=== PATIENT | female | born 1990 | race African-American/Black ===

== ENCOUNTER 2016-07-22 00:03 | Emergency (ER) | payer SELFPAY ==
[~2016-07-22] VITALS: Ht 160 cm; Wt 59.9 kg
[~2016-07-22 00:03] MED LIST: ACET325T9 PO; CIPR500T PO; CYCL10TA2 PO; HYDR-2672 PO; HYDR-971 PO; METR500T PO; METR500T4 PO; SERT50TA PO
[2016-07-22 00:45] LABS: NEG OBC UR NEG; POS OBC UR POS
[2016-07-22] MEDS ORDERED: KETOROLAC TROMETHAMINE 30 MG/ML SYRINGE. IV ONE (00:45)
[2016-07-22 00:47] LABS: BILIRUBIN,URINE NEGATIVE (NEG); GLUCOSE,URINE NEGATIVE (NEG); NITRITE,URINE NEGATIVE (NEG); PH,URINE 5.5; PROTEIN,URINE NEGATIVE (NEG-TRACE); UROBILINOGEN,URINE 0.2 mg/dL (0.2 mg/dL)
[2016-07-22 00:55] LABS: BASO # 0.1 x10^3/uL (0.0-0.2); BASO % 1 % (0-3); EOS % 2 % (0-3); HEMATOCRIT 39.5 % (36.0-47.0); HEMOGLOBIN 13.6 g/dL (12.0-15.5); LYMPH # 3.4 x10^3/uL (1.0-4.8); LYMPH % 34 % (24-48); MEAN CORPUSCULAR HEMOGLOBIN 32 pg (25-35); MEAN CORPUSCULAR HGB CONC 34 g/dL (31-37); MEAN CORPUSCULAR VOLUME 91 fL (79-100); MONO % 6 % (0-9); NEUT % 57 % (31-73); PLATELET COUNT 250 x10^3/uL (140-400); RED BLOOD COUNT 4.33 x10^6/uL (3.50-5.40); RED CELL DISTRIBUTION WIDTH 12.2 % (11.5-14.5)
[2016-07-22 00:58] LABS: BACTERIA,URINE 0 /HPF (0-FEW); RBC,URINE 0 /HPF (0-2); SQUAMOUS EPITHELIAL CELL,UR MANY /LPF; WBC,URINE OCC /HPF (0-4)
[2016-07-22 01:05] LABS: CALCIUM 8.8 mg/dL (8.5-10.1); CREATININE 0.8 mg/dL (0.6-1.0); GFR 105.8; POTASSIUM 3.5 mmol/L (3.5-5.1)
--- NOTE | 2016-07-22 01:47 | PHYS DOC ---
Past Medical History Past Medical History: Depression Additional Past Medical Histor: chronic back and hip pain Past Surgical History: , Other Additional Past Surgical Histo: R)ovarian cyst removal, HERNIA REPAIR Alcohol Use: Occasionally Drug Use: Marijuana Adult General Chief Complaint Chief Complaint: ABDOMINAL PAIN HPI HPI Patient is a 25 year old female who presents with boyfriend for eval of LLQ abd pain that is crampy and fluctuating in intensity today, constant pain. She has recent straining with BM. She denies rectal pain or bloody stools. She denies n/v, f/c, dysuria, hematuria, back pain, vaginal bleeding or discharge. States she has h/o ovarian cyst pain, but this is different. Review of Systems Review of Systems Constitutional: Denies fever or chills [] Eyes: Denies change in visual acuity, redness, or eye pain [] HENT: Denies nasal congestion or sore throat [] Respiratory: Denies cough or shortness of breath [] Cardiovascular: No additional information not addressed in HPI [] GI: Denies nausea, vomiting, bloody stools or diarrhea [] : Denies dysuria or hematuria [] Musculoskeletal: Denies back pain or joint pain [] Integument: Denies rash or skin lesions [] Neurologic: Denies headache, focal weakness or sensory changes [] Endocrine: Denies polyuria or polydipsia [] Current Medications Current Medications Current Medications Medications (Trade) Dose Ordered Sig/Jordi Start Time Stop Time Status Last Admin Dose Admin Ketorolac Tromethamine (Toradol) 15 mg 1X ONCE 07/22/16 00:45 07/22/16 00:46 DC 07/22/16 01:08 15 MG Allergies Allergies Allergies Coded Allergies Type Severity Reaction Last Updated Verified Iodinated Contrast Media - IV Dye Allergy Intermediate burn & itch 07/20/15 Yes Physical Exam Physical Exam Constitutional: Well developed, well nourished, no acute distress, non-toxic appearance. [] HENT: Normocephalic, atraumatic, bilateral external ears normal, oropharynx moist, nose normal. [] Eyes: PERRLA, EOMI. [] Neck: Normal range of motion, supple. [] Cardiovascular:Heart rate regular rhythm [] Lungs & Thorax: Bilateral breath sounds clear to auscultation [] Abdomen: Bowel sounds normal, soft, has mild LLQ tenderness with no pelvic tenderness, no guarding or rebound. [] Skin: Warm, dry, no erythema, no rash. [] Back: No tenderness, no CVA tenderness. [] Extremities: ROM intact, no edema. [] Neurologic: Alert and oriented X 3, normal motor function, normal sensory function, no focal deficits noted. [] Psychologic: Affect normal, judgement normal, mood normal. [] Current Patient Data Vital Signs Vital Signs Date Time Temp Pulse Resp B/P Pulse Ox O2 Delivery O2 Flow Rate FiO2 07/22/16 02:22 89 20 102/56 98 Room Air 07/22/16 00:37 97.6 97.6 Lab Values Laboratory Tests Test 07/22/16 00:35 07/22/16 00:45 Urine Collection Type Unknown Urine Color Yellow Urine Clarity Clear Urine pH 5.5 Urine Specific [place] >=1.030 Urine Protein Negativemg/dL (NEG-TRACE) Urine Glucose (UA) Negativemg/dL (NEG) Urine Ketones (Stick) Negativemg/dL (NEG) Urine Blood Negative (NEG) Urine Nitrite Negative (NEG) Urine Bilirubin Negative (NEG) Urine Urobilinogen Dipstick 0.2mg/dL (0.2 mg/dL) Urine Leukocyte Esterase Negative (NEG) Urine RBC 0/HPF (0-2) Urine WBC Occ/HPF (0-4) Urine Squamous Epithelial Cells Many/LPF Urine Bacteria 0/HPF (0-FEW) Urine Mucus Marked/LPF Urine Test Negative (NEG) White Blood Count 10.0x10^3/uL (4.0-11.0) Red Blood Count 4.33x10^6/uL (3.50-5.40) Hemoglobin 13.6g/dL (12.0-15.5) Hematocrit 39.5% (36.0-47.0) Mean Corpuscular Volume 91fL (79-100) Mean Corpuscular Hemoglobin 32pg (25-35) Mean Corpuscular Hemoglobin Concent 34g/dL (31-37) Red Cell Distribution Width 12.2% (11.5-14.5) Platelet Count 250x10^3/uL (140-400) Neutrophils (%) (Auto) 57% (31-73) Lymphocytes (%) (Auto) 34% (24-48) Monocytes (%) (Auto) 6% (0-9) Eosinophils (%) (Auto) 2% (0-3) Basophils (%) (Auto) 1% (0-3) Neutrophils # (Auto) 5.7x10^3uL (1.8-7.7) Lymphocytes # (Auto) 3.4x10^3/uL (1.0-4.8) Monocytes # (Auto) 0.6x10^3/uL (0.0-1.1) Eosinophils # (Auto) 0.2x10^3/uL (0.0-0.7) Basophils # (Auto) 0.1x10^3/uL (0.0-0.2) Sodium Level 141mmol/L (136-145) Potassium Level 3.5mmol/L (3.5-5.1) Chloride Level 106mmol/L (98-107) Carbon Dioxide Level 29mmol/L (21-32) Anion Gap 6 (6-14) Blood Urea Nitrogen 9mg/dL (7-20) Creatinine 0.8mg/dL (0.6-1.0) Estimated GFR (Cockcroft-Gault) 105.8 Glucose Level 103mg/dL (70-99) H Calcium Level 8.8mg/dL (8.5-10.1) Laboratory Tests 07/22/16 00:45 Laboratory Tests 07/22/16 00:45 Radiology/Procedures Radiology/Procedures Acute abdominal series as interpreted by me with no acute cardiopulmonary disease process and nonobstructive bowel gas pattern Ultrasound pelvis IMPRESSION 1. 4.3 centimeter cyst identified in the right ovary. Followup examination is recommended document stability. 2. Linear echogenicity identified in the endometrium likely intrauterine contraceptive device. Electronically signed by: Abilio Siegel (Jul 22, 2016 02:10:45 Course & Med Decision Making Course & Med Decision Making Pertinent Labs and Imaging studies reviewed. (See chart for details) Workup is unremarkable. She is feeling better after medications. Discussed symptoms could be related to constipation and discussed laxatives/stool softeners. Return precautions given. She understood and agrees with plan. Dragon Disclaimer Dragon Disclaimer This electronic medical record was generated, in whole or in part, using a voice recognition dictation system. Departure Departure Impression: Primary Impression: Abdominal pain Disposition: HOME, SELF-CARE Condition: STABLE Referrals: NO PCP (PCP) Patient Instructions: Abdominal Pain, [id number] Additional Instructions: Take Tylenol or ibuprofen as needed for pain. Follow-up with your primary care doctor within one week. Return for any concerns. Problem Qualifiers Primary Impression: Abdominal pain Abdominal location: left lower quadrant Qualified Code: R10.32 - Left lower quadrant pain Jimenez CEJA MD Jul 22, 2016 01:47
--- NOTE | 2016-07-22 02:13 | RAD ---
Examination: Ultrasound pelvis History: History of left lower quadrant pain for 4 hours. FINDINGS The uterus measures 9.0 x 5.7 x 3.3 centimeters. The right ovary measures 5.9 x 4.5 x 3.2 centimeters. The left ovary measures 3.5 x 3.1 x 1.2 centimeters. Blood flow identified in the right and left ovaries. The endometrium measures 1.6 millimeters in transverse dimension. There is linear echogenicity identified in the endometrium likely intrauterine contraceptive device. There is a cystic structure identified in the right ovary measuring 4.3 x 3.6 x 2.7 centimeters likely a cyst. IMPRESSION 1. 4.3 centimeter cyst identified in the right ovary. Followup examination is recommended document stability. 2. Linear echogenicity identified in the endometrium likely intrauterine contraceptive device. Electronically signed by: Abilio Siegel (Jul 22, 2016 02:10:45)
[2016-07-22 02:22] VITALS: BP 102/56
--- NOTE | 2016-07-22 07:53 | RAD ---
EXAM: Abdomen acute complete. HISTORY: Pain. COMPARISON: 06/06/2009. FINDINGS: A frontal view of the chest and frontal upright and supine views of the abdomen are obtained. There is no infiltrate, effusion or pneumothorax. The heart is normal in size. There is gas and stool within the colon. There is no evidence of bowel obstruction. There is no intracranial free air. There is an intrauterine contraceptive device overlying the pelvis. IMPRESSION: 1. No acute pulmonary finding. 2. Nonobstructive bowel gas pattern.
== END 2016-07-22 02:29 | disposition home or self-care (01) ==
LOC: ER 00:03
DX: R10.32 Left lower quadrant pain (principal); Z91.041 Radiographic dye allergy status; F12.10 Cannabis abuse, uncomplicated
CPT/HCPCS: 36415; 74022; 76830; 76856; 80048; 81001; 81025; 85027; 96374; 99285; J1885

== ENCOUNTER 2016-08-29 19:47 | Emergency (ER) | payer SELFPAY ==
[~2016-08-29] VITALS: Ht 165.1 cm; Wt 72.6 kg
[2016-08-29 20:10] VITALS: BP 106/54
[2016-08-29 20:43] LABS: BILIRUBIN,URINE SMALL (NEG); GLUCOSE,URINE NEGATIVE (NEG); NITRITE,URINE NEGATIVE (NEG); PH,URINE 6.5; PROTEIN,URINE 30 mg/dL (NEG-TRACE)
--- NOTE | 2016-08-29 20:48 | PHYS DOC ---
Past Medical History Past Medical History: Depression Additional Past Medical Histor: chronic back and hip pain Past Surgical History: , Other Additional Past Surgical Histo: R)ovarian cyst removal, HERNIA REPAIR Alcohol Use: Occasionally Drug Use: Marijuana Adult General Chief Complaint Chief Complaint: VAGINAL BLEEDING HPI HPI Patient is a 26 year old female presents emergency room today with complaint of vaginal bleeding for the past 4 days. Patient states she pulled her own Mirena out 4 days ago. She states that it been in place for 3 years and she did have complications with chronic pelvic pain since that period of time. She states that she has not been seen by a buffing wheel former machine as she does not have the money to pay to be seen by buffing wheel former machine. She denies any history of genitourinary disease. She denies any history of gynecologic problems or surgeries. She denies any history of bleeding disorders. Review of Systems Review of Systems Constitutional: Denies fever or chills [] Eyes: Denies change in visual acuity, redness, or eye pain [] HENT: Denies nasal congestion or sore throat [] Respiratory: Denies cough or shortness of breath [] Cardiovascular: No additional information not addressed in HPI [] GI: Denies abdominal pain, nausea, vomiting, bloody stools or diarrhea [] : Denies dysuria or hematuria [] Musculoskeletal: Denies back pain or joint pain [] Integument: Denies rash or skin lesions [] Neurologic: Denies headache, focal weakness or sensory changes [] Endocrine: Denies polyuria or polydipsia [] Current Medications Current Medications Current Medications Medications (Trade) Dose Ordered Sig/Jordi Start Time Stop Time Status Last Admin Dose Admin Ketorolac Tromethamine (Toradol Im) 60 mg 1X ONCE 08/29/16 22:00 08/29/16 22:00 DC 08/29/16 21:54 60 MG Allergies Allergies Allergies Coded Allergies Type Severity Reaction Last Updated Verified Iodinated Contrast Media - Oral and Allergy Intermediate burn & itch 07/20/15 Yes Physical Exam Physical Exam Constitutional: Well developed, well nourished, no acute distress, non-toxic appearance. [] HENT: Normocephalic, atraumatic, bilateral external ears normal, oropharynx moist, no oral exudates, nose normal. [] Eyes: PERRLA, EOMI, conjunctiva normal, no discharge. [] Neck: Normal range of motion, no tenderness, supple, no stridor. [] Cardiovascular:Heart rate regular rhythm, no murmur [] Lungs & Thorax: Bilateral breath sounds clear to auscultation [] Abdomen: Abdomen is soft and nondistended. There are normoactive bowel sounds in all 4 quadrants. There is no palpable defects the abdominal wall or pulsatile masses. Patient has no complaints upon palpation. Pelvic exam was performed with DONTRELL Recio in the room. There was moderate amount of vaginal bleeding. There are no blood clots or tissue in the vaginal vault. Cervix was normal in appearance. External os is closed. There is no evidence of lacerations or abrasions to the cervix. There is no cervical motion tenderness. There is no palpable abnormalities to the adnexa or complaints of pain upon bimanual exam. Skin: Warm, dry, no erythema, no rash. [] Back: No tenderness, no CVA tenderness. [] Extremities: No tenderness, no cyanosis, no clubbing, ROM intact, no edema. [] Neurologic: Alert and oriented X 3, normal motor function, normal sensory function, no focal deficits noted. [] Psychologic: Affect normal, judgement normal, mood normal. [] Current Patient Data Vital Signs Vital Signs Date Time Temp Pulse Resp B/P Pulse Ox O2 Delivery O2 Flow Rate FiO2 08/29/16 20:10 97.9 72 18 106/54 100 Room Air 97.9 Lab Values Laboratory Tests Test 08/29/16 20:23 Urine Collection Type Unknown Urine Color Red Urine Clarity Turbid Urine pH 6.5 Urine Specific [place] 1.020 Urine Protein 30mg/dL (NEG-TRACE) Urine Glucose (UA) Negativemg/dL (NEG) Urine Ketones (Stick) Tracemg/dL (NEG) Urine Blood Large (NEG) Urine Nitrite Negative (NEG) Urine Bilirubin Small (NEG) Urine Urobilinogen Dipstick 1.0mg/dL (0.2 mg/dL) Urine Leukocyte Esterase Small (NEG) Urine RBC Tntc/HPF (0-2) Urine WBC 1-4/HPF (0-4) Urine Squamous Epithelial Cells Few/LPF Urine Bacteria 0/HPF (0-FEW) Urine Mucus Slight/LPF Urine Test Negative (NEG) EKG EKG [] Radiology/Procedures Radiology/Procedures [address] [place] [address] IMAGING REPORT Signed PATIENT: MANJIT PENN ACCOUNT: [id number] : 1990 LOCATION: ER AGE: 26 SEX: F EXAM STATUS: REG ER ORD. PHYSICIAN: YOSEF VEGA REASON: vaginal bleeding for 4 days post self extraction of IUD PROCEDURE: PELVIS W/TV PROCEDURE Pelvic ultrasound HISTORY 26-year-old female pulled out her own IUD 4 days ago now with heavy bleeding and clots. Patient had IUD for 3 years, got tired of having hip pain. TECHNIQUE Transabdominal and transvaginal sonographic imaging of the pelvis is performed. COMPARISON July 22, 2016. FINDINGS Transabdominal imaging demonstrates poor visualization of the uterus and ovaries. Transvaginal imaging demonstrates no focal cervical abnormality. The uterus measures 8.6 x 4.8 x 4.1 cm, anteflexed. The endometrial stripe measures 3 millimeters in thickness. The right ovary measures 3.4 x 2.8 x 2.4 cm, with internal blood flow documented and normal appearing follicles. The left ovary measures 3.4 x 2.8 x 2.4 cm, with internal blood flow documented. Within the left ovary is an oval, anechoic, simple appearing 3.2 cm cyst, with increased through transmission and no internal vascularity. It appears smaller in size when compared to the previous exam, on which it measured 4.3 cm. No free fluid is seen within the provided images. IMPRESSION 1. Normal endometrial thickness of 3 mm. 2. Decreased size of a simple appearing left ovarian cyst. Electronically signed by: Linda Duron (Aug 29, 2016 21:39:16) DICTATED and SIGNED BY: LINDA DURON MD DATE: 08/29/16 2139 CC: YOSEF VEGA; NO PCP ~ Course & Med Decision Making Course & Med Decision Making Pertinent Labs and Imaging studies reviewed. (See chart for details) [] Dragon Disclaimer Dragon Disclaimer This electronic medical record was generated, in whole or in part, using a voice recognition dictation system. Departure Departure Impression: Primary Impression: Vaginal bleeding Disposition: 01 HOME, SELF-CARE Condition: GOOD Referrals: NO PCP (PCP) Patient Instructions: Uterine Bleeding, Dysfunctional, [id number] Additional Instructions: 1. Pelvic ultrasound today is normal. There were no evidence of tears or lacerations to your cervix. 2. test is negative. Urine shows no evidence of infection. 3. Take the medication as prescribed. 4. You need to follow-up with a buffing wheel former machine. Please call [phone] tomorrow to establish a follow-up appointment. Scripts Naproxen Sodium (Anaprox Ds)550 Mg [id number] Mg PO twice a day #20 Prov:YOSEF VEGA 08/29/16 YOSEF VEGA Aug 29, 2016 20:48
[2016-08-29 20:53] LABS: BACTERIA,URINE 0 /HPF (0-FEW); RBC,URINE TNTC /HPF (0-2); SQUAMOUS EPITHELIAL CELL,UR FEW /LPF
[2016-08-29 21:17] LABS: NEG OBC UR NEG; POS OBC UR POS
--- NOTE | 2016-08-29 21:40 | RAD ---
PROCEDURE Pelvic ultrasound HISTORY 26-year-old female pulled out her own IUD 4 days ago now with heavy bleeding and clots. Patient had IUD for 3 years, got tired of having hip pain. TECHNIQUE Transabdominal and transvaginal sonographic imaging of the pelvis is performed. COMPARISON July 22, 2016. FINDINGS Transabdominal imaging demonstrates poor visualization of the uterus and ovaries. Transvaginal imaging demonstrates no focal cervical abnormality. The uterus measures 8.6 x 4.8 x 4.1 cm, anteflexed. The endometrial stripe measures 3 millimeters in thickness. The right ovary measures 3.4 x 2.8 x 2.4 cm, with internal blood flow documented and normal appearing follicles. The left ovary measures 3.4 x 2.8 x 2.4 cm, with internal blood flow documented. Within the left ovary is an oval, anechoic, simple appearing 3.2 cm cyst, with increased through transmission and no internal vascularity. It appears smaller in size when compared to the previous exam, on which it measured 4.3 cm. No free fluid is seen within the provided images. IMPRESSION 1. Normal endometrial thickness of 3 mm. 2. Decreased size of a simple appearing left ovarian cyst. Electronically signed by: Leeann Duron (Aug 29, 2016 21:39:16)
[2016-08-29] MEDS ORDERED: NAPR550T PO (21:47)
[2016-08-29] MEDS ORDERED: KETOROLAC TROMETHAMINE 60 MG/2 ML SYRINGE. IM ONE (22:00)
== END 2016-08-29 21:56 | disposition home or self-care (01) ==
LOC: ER 19:47
DX: N93.9 Abnormal uterine and vaginal bleeding, unspecified (principal); G89.29 Other chronic pain; R10.2 Pelvic and perineal pain; F32.9 Major depressive disorder, single episode, unspecified; F12.10 Cannabis abuse, uncomplicated; Z91.041 Radiographic dye allergy status
CPT/HCPCS: 76830; 76856; 81001; 81025; 87086; 96372; 99285; J1885

== ENCOUNTER 2016-09-27 14:47 | Emergency (ER) | payer SELFPAY ==
[~2016-09-27] VITALS: Ht 162.6 cm; Wt 61.7 kg
[~2016-09-27 14:47] MED LIST changes: +NAPR550T PO
[2016-09-27 14:51] VITALS: BP 100/59
[2016-09-27] MEDS ORDERED: PRED20TA PO (15:28)
--- NOTE | 2016-09-27 15:29 | PHYS DOC ---
Past Medical History Past Medical History: Depression Additional Past Medical Histor: chronic back and hip pain Past Surgical History: , Other Additional Past Surgical Histo: R)ovarian cyst removal, HERNIA REPAIR Additional Information: nonsmoker Alcohol Use: None Drug Use: None Adult General Chief Complaint Chief Complaint: ITCHING HPI HPI Patient is a 26 year old female who presents with itchy rash starting last night. The rash started on her face and has spread to her neck, chest, and right hand. She denies any changes in household products or new medications. She denies fever, shortness of breath, or angioedema. She does not have a PCP. Review of Systems Review of Systems Constitutional: Denies fever or chills. [] Eyes: Denies change in visual acuity, redness, or eye pain. [] HENT: Denies ear pain, nasal congestion or sore throat. Denies angioedema. Respiratory: Denies cough or shortness of breath. [] Musculoskeletal: Denies back pain or joint pain. [] Integument: Reports pruritic rash. Allergies Allergies Allergies Coded Allergies Type Severity Reaction Last Updated Verified Iodinated Contrast Media - Oral and Allergy Intermediate burn & itch 07/20/15 Yes Physical Exam Physical Exam Constitutional: Well developed, well nourished, no acute distress, non-toxic appearance. [] HENT: Normocephalic, atraumatic, oropharynx moist. [] Eyes: PERRLA, EOMI, conjunctiva normal, no discharge. [] Neck: Normal range of motion, no tenderness, supple, no stridor. [] Cardiovascular: Heart rate regular rhythm, no murmur. [] Lungs & Thorax: Bilateral breath sounds clear to auscultation without wheezes, rales, or rhonchi. [] Skin: Warm, dry, no erythema. There is a fine, erythematous, maculopapular patchy rash on the face, left side of the neck, between the breasts, and on the dorsum of the right hand over the 1st metacarpal. Extremities: No tenderness, ROM intact, no edema. Distal pulses equal bilaterally. [] Neurologic: Alert and oriented X 3, normal motor function, normal sensory function, no focal deficits noted. [] Psychologic: Affect normal, judgement normal, mood normal. [] Current Patient Data Vital Signs Vital Signs Date Time Temp Pulse Resp B/P Pulse Ox O2 Delivery O2 Flow Rate FiO2 09/27/16 14:51 98.1 80 16 100 Room Air 98.1 EKG EKG [] Radiology/Procedures Radiology/Procedures [] Course & Med Decision Making Course & Med Decision Making Pertinent Labs and Imaging studies reviewed. (See chart for details) [] Dragon Disclaimer Dragon Disclaimer This electronic medical record was generated, in whole or in part, using a voice recognition dictation system. Departure Departure Impression: Primary Impression: Contact dermatitis Disposition: HOME, SELF-CARE Condition: STABLE Referrals: BRADLEY RENAE MD Patient Instructions: Contact Dermatitis, [id number] Additional Instructions: Your rash appears to be due to an allergy to an unknown substance. You were given a shot of steroids in the emergency department to help decrease the itching and clear the rash. Please complete all of the prescribed steroid pills, starting tomorrow. Please follow-up with the envelope press operator listed below if your rash continues or returns. Return to the emergency department if you have any new or concerning symptoms. Scripts Prednisone 20 Mg [id number] Mg PO DAILY 5 Days Prov:JIM PATEL 09/27/16 Problem Qualifiers Primary Impression: Contact dermatitis Contact dermatitis type: unspecified Contact dermatitis trigger: unspecified trigger Qualified Code: L25.9 - Unspecified contact dermatitis, unspecified cause JIM PATEL Sep 27, 2016 15:29
[2016-09-27] MEDS ORDERED: DEXAMETHASONE SOD PHOS 20 MG/5 ML VIAL. IM ONE (16:00)
== END 2016-09-27 15:53 | disposition home or self-care (01) ==
LOC: ER 14:47
DX: L25.9 Unspecified contact dermatitis, unspecified cause (principal); F32.9 Major depressive disorder, single episode, unspecified; Z91.041 Radiographic dye allergy status
CPT/HCPCS: 96372; 99283; J1100

== ENCOUNTER 2016-11-12 13:54 | Emergency (ER) | payer OTHER ==
[~2016-11-12] VITALS: Ht 162.6 cm; Wt 58.5 kg
[~2016-11-12 13:54] MED LIST changes: +PRED20TA PO
--- NOTE | 2016-11-12 14:32 | PHYS DOC ---
Past Medical History Past Medical History: Depression Additional Past Medical Histor: chronic back and hip pain Past Surgical History: , Other Additional Past Surgical Histo: R)ovarian cyst removal, HERNIA REPAIR Alcohol Use: None Drug Use: None Adult General Chief Complaint Chief Complaint: VAGINAL BLEEDING [facility] Patient is a 26 year old female presenting to the emergency department for evaluation of vaginal bleeding in early . She thinks that she is approximately 6-7 weeks' based off of her last menstrual period. She is with a prior due to decelerations based on what she is describing to me. She says that she had a large gush of blood and now the bleeding has slowed down and there is just a small amount of bleeding on the tissue. Patient does not know her blood type and she denies any abdominal pain now where as before she had some discomfort. Review of Systems Review of Systems Constitutional: Denies fever or chills [] Respiratory: Denies cough or shortness of breath [] Cardiovascular: No additional information not addressed in [facility] [] GI: Denies abdominal pain, nausea, vomiting, bloody stools or diarrhea [] : Denies dysuria or hematuria [] Musculoskeletal: Denies back pain or joint pain [] Allergies Allergies Allergies Coded Allergies Type Severity Reaction Last Updated Verified Iodinated Contrast Media - Oral and Allergy Intermediate burn & itch 07/20/15 Yes Physical Exam Physical Exam Constitutional: Well developed, well nourished, no acute distress, non-toxic appearance. [] Cardiovascular:Heart rate regular rhythm, no murmur [] Lungs & Thorax: Bilateral breath sounds clear to auscultation [] Abdomen: Bowel sounds normal, soft, no tenderness, no masses, no pulsatile masses. DRILLING AND PRODUCTION SUPERINTENDENT exam revealed some bleeding from her cervical os and it appears closed feels closed as well. No Cervical motion or adnexal tenderness on exam.. Skin: Warm, dry, no erythema, no rash. [] Back: No tenderness, no CVA tenderness. [] Current Patient Data Vital Signs Vital Signs Date Time Temp Pulse Resp B/P (MAP) Pulse Ox O2 Delivery O2 Flow Rate FiO2 11/12/16 14:10 98.4 86 18 113/67 (82) 98 Room Air 98.4 EKG EKG [] Radiology/Procedures Radiology/Procedures [] Course & Med Decision Making Course & Med Decision Making Patient will get labs including Quant hCG type and screen and then a OB ultrasound and then reevaluate. Workup pending at this time so we will transfer care to Dr. York and have him disposition the patient appropriately. Raina Disclaimer Dragon Disclaimer This electronic medical record was generated, in whole or in part, using a voice recognition dictation system. Departure Departure Impression: Primary Impression: Threatened Referrals: NO PCP (PCP) SAHARA WALTERS DO November 12, 2016 14:32
[2016-11-12 14:46] LABS: BASO % 0 % (0-3); EOS % 1 % (0-3); HEMATOCRIT 40.3 % (36.0-47.0); HEMOGLOBIN 13.8 g/dL (12.0-15.5); LYMPH # 2.2 x10^3/uL (1.0-4.8); LYMPH % 22 % (24-48); MEAN CORPUSCULAR HEMOGLOBIN 32 pg (25-35); MEAN CORPUSCULAR HGB CONC 34 g/dL (31-37); MEAN CORPUSCULAR VOLUME 92 fL (79-100); MONO % 7 % (0-9); NEUT % 70 % (31-73); PLATELET COUNT 244 x10^3/uL (140-400); RED BLOOD COUNT 4.37 x10^6/uL (3.50-5.40); RED CELL DISTRIBUTION WIDTH 12.5 % (11.5-14.5)
[2016-11-12 14:47] LABS: BILIRUBIN,URINE NEGATIVE (NEG); GLUCOSE,URINE NEGATIVE (NEG); NITRITE,URINE NEGATIVE (NEG); PROTEIN,URINE NEGATIVE (NEG-TRACE); UROBILINOGEN,URINE 0.2 mg/dL (0.2 mg/dL)
[2016-11-12 14:57] LABS: CALCIUM 9.2 mg/dL (8.5-10.1); CREATININE 0.6 mg/dL (0.6-1.0); GFR 146.2; POTASSIUM 3.3 mmol/L (3.5-5.1)
[2016-11-12 15:03] LABS: ALBUMIN 3.9 g/dL (3.4-5.0); TOTAL BILIRUBIN 0.4 mg/dL (0.2-1.0); TOTAL PROTEIN 7.9 g/dL (6.4-8.2)
[2016-11-12 15:04] LABS: WBC,URINE OCC /HPF (0-4)
[2016-11-12 15:05] LABS: BACTERIA,URINE FEW /HPF (0-FEW); SQUAMOUS EPITHELIAL CELL,UR FEW /LPF
[2016-11-12 15:06] LABS: NEG OBC UR NEG; POS OBC UR POS
--- NOTE | 2016-11-12 16:08 | RAD ---
Indication: Vaginal bleeding, . Technique: First trimester OB ultrasound was performed. Transabdominal imaging was performed with transvaginal imaging also performed to better evaluate the AP. Findings: Single live intrauterine with heart tones of 157 bpm are noted. Gestational sac, pole, and yolk sac are visualized. [place]-rump length measurement on average is 0.36 cm corresponding to a gestational age of 6 weeks 0 days and CARLI by crown-rump length of July 08, 2017, concordant with CARLI by LMP. Probable 15 x 14 x 6 mm subchorionic hemorrhage is noted. Corpus luteum cyst is noted in the left ovary. Right ovary is normal in appearance on grayscale imaging. Color flow and low-resistance waveform is documented for both ovaries. Small amount of simple free fluid is noted. Impression: 1. Single live intrauterine with heart tones of 157 bpm and estimated gestational age by crown-rump length of 6 weeks 0 days. 2. Small subchorionic hemorrhage, short term follow-up can be considered.
[2016-11-12 16:15] VITALS: BP 113/67
[2016-11-12] MEDS ORDERED: ONDA4TAB10 PO (16:26)
== END 2016-11-12 16:31 | disposition home or self-care (01) ==
LOC: ER 14:57
DX: O20.0 Threatened abortion (principal); O99.341 Other mental disorders complicating pregnancy, first trimester; F32.9 Major depressive disorder, single episode, unspecified; Z91.041 Radiographic dye allergy status; Z3A.01 Less than 8 weeks gestation of pregnancy
CPT/HCPCS: 36415; 76801; 76817; 80053; 81001; 81025; 84702; 85027; 86850; 86900; 86901; 87086; 99285-25

== ENCOUNTER 2017-01-09 10:38 | Emergency (ER) | payer OTHER ==
[~2017-01-09] VITALS: Ht 160 cm; Wt 58.5 kg
[~2017-01-09 10:38] MED LIST changes: -HYDR-2672 PO; +HYDR-2766 PO; -METR500T4 PO; +METR500T8 PO; +ONDA4TAB10 PO
[2017-01-09] MEDS ORDERED: IV NORMAL SALINE 1000ML BAG 1,000 ML IV SCH (11:32)
[2017-01-09] MEDS ORDERED: ONDANSETRON PF 4 MG/2 ML VIAL. IV ONE ×2 (11:45→14:00)
[2017-01-09 12:00] LABS: BASO % 0 % (0-3); EOS % 1 % (0-3); HEMATOCRIT 40.1 % (36.0-47.0); HEMOGLOBIN 13.7 g/dL (12.0-15.5); LYMPH # 1.5 x10^3/uL (1.0-4.8); LYMPH % 13 % (24-48); MEAN CORPUSCULAR HEMOGLOBIN 31 pg (25-35); MEAN CORPUSCULAR HGB CONC 34 g/dL (31-37); MEAN CORPUSCULAR VOLUME 91 fL (79-100); MONO % 5 % (0-9); NEUT % 82 % (31-73); PLATELET COUNT 211 x10^3/uL (140-400); RED CELL DISTRIBUTION WIDTH 12.5 % (11.5-14.5); WHITE BLOOD COUNT 11.9 x10^3/uL (4.0-11.0)
[2017-01-09 12:05] LABS: CALCIUM 8.9 mg/dL (8.5-10.1); CREATININE 0.5 mg/dL (0.6-1.0); GFR 180.5; POTASSIUM 3.6 mmol/L (3.5-5.1)
[2017-01-09] MEDS ORDERED: diphenhydrAMINE 50 MG/ML VIAL IVP ONE (12:15)
[2017-01-09] MEDS ORDERED: ACETAMINOPHEN 500 MG TABLET PO ONE (12:15)
--- NOTE | 2017-01-09 12:37 | PHYS DOC ---
Past Medical History Past Medical History: Depression Additional Past Medical Histor: chronic back and hip pain Past Surgical History: , Other Additional Past Surgical Histo: R)ovarian cyst removal, HERNIA REPAIR Alcohol Use: None Drug Use: None Adult General Chief Complaint Chief Complaint: VOMITING IN [facility] HPI Patient is a 26 year old female who is about 14 weeks by LMP she is a 001 who comes in complaining of nausea and vomiting and crampy abdominal pain for last 4 days. Patient was seen on off by her FINANCIAL RISK MANAGER recently had an ultrasound done 2 days ago with a normal developing IUP. Patient has had intermittent nausea with vomiting and crampy abdominal pain after she vomits. She denies any vaginal bleeding, discharge or diarrhea. She denies any trauma, fevers, chills or other URI symptoms. She also denies any UTI symptoms of urgency frequency or dysuria. Patient admits the pain only occurs when she vomits. Patient is also a mild lower neck pain that radiates along the skull grading a tension headache. It is been waxing and waning for 4 days. It is not worse of life sudden onset or causing any neurologic deficits. She denies any change in vision, photophobia, change in memory or other issues. At this time she is primarily looking for symptomatically for her nausea and vomiting. Her Ob believes that some of her symptoms be related to sinuses and encouraged use [id number] Claritin. Review of Systems Review of Systems Constitutional: Denies fever or chills [] Eyes: Denies change in visual acuity, redness, or eye pain [] HENT: Denies nasal congestion or sore throat [] Respiratory: Denies cough or shortness of breath [] Cardiovascular: No additional information not addressed in HPI [] GI: This patient does quit of abdominal pain crampy in nature without radiation with nausea and vomiting is nonbilious nonbloody. She denies any diarrhea or constipation.. : Denies dysuria or hematuria [] Musculoskeletal: Denies back pain or joint pain [] Integument: Denies rash or skin lesions [] Neurologic: Denies headache, focal weakness or sensory changes [] Endocrine: Denies polyuria or polydipsia [] Current Medications Current Medications Current Medications Medications (Trade) Dose Ordered Sig/Jordi Start Time Stop Time Status Last Admin Dose Admin Acetaminophen (Tylenol) 1,000 mg 1X ONCE 01/09/17 12:15 01/09/17 12:21 DC Diphenhydramine HCl (Benadryl) 25 mg 1X ONCE 01/09/17 12:15 01/09/17 12:21 DC Ondansetron HCl (Zofran) 4 mg 1X ONCE 01/09/17 11:45 01/09/17 11:46 DC 01/09/17 12:08 4 MG Sodium Chloride 1,000 ml @ 1,000 mls/hr Q1H 01/09/17 11:32 01/09/17 12:31 DC 01/09/17 12:08 1,000 MLS/HR Allergies Allergies Allergies Coded Allergies Type Severity Reaction Last Updated Verified Iodinated Contrast Media - Oral and Allergy Intermediate burn & itch 07/20/15 Yes Physical Exam Physical Exam This patient's vital signs been reviewed by me NORMAL LIMITS. Constitutional: Well developed, well nourished, no acute distress, non-toxic appearance. [] HENT: Normocephalic, atraumatic, bilateral external ears normal, oropharynx moist, no oral exudates, nose normal. [] Eyes: PERRLA, EOMI, conjunctiva normal, no discharge. [] Neck: Normal range of motion, no tenderness, supple, no stridor. [] Cardiovascular:Heart rate regular rhythm, no murmur [] Lungs & Thorax: Bilateral breath sounds clear to auscultation [] Abdomen: Bowel sounds normal, soft, no tenderness, no masses, no pulsatile masses. Patient does demonstrated a slight gravid uterus that is palpable just over the pelvis ring. Skin: Warm, dry, no erythema, no rash. [] Back: No tenderness, no CVA tenderness. [] Extremities: No tenderness, no cyanosis, no clubbing, ROM intact, no edema. [] Neurologic: Alert and oriented X 3, normal motor function, normal sensory function, no focal deficits noted. [] Psychologic: Affect normal, judgement normal, mood normal. [] Current Patient Data Vital Signs Vital Signs Date Time Temp Pulse Resp B/P (MAP) Pulse Ox O2 Delivery O2 Flow Rate FiO2 01/09/17 11:20 98.7 87 16 126/72 (90) 99 Room Air 98.7 Lab Values Laboratory Tests Test 01/09/17 11:50 White Blood Count 11.9 x10^3/uL (4.0-11.0) H Red Blood Count 4.40 x10^6/uL (3.50-5.40) Hemoglobin 13.7 g/dL (12.0-15.5) Hematocrit 40.1 % (36.0-47.0) Mean Corpuscular Volume 91 fL (79-100) Mean Corpuscular Hemoglobin 31 pg (25-35) Mean Corpuscular Hemoglobin Concent 34 g/dL (31-37) Red Cell Distribution Width 12.5 % (11.5-14.5) Platelet Count 211 x10^3/uL (140-400) Neutrophils (%) (Auto) 82 % (31-73) H Lymphocytes (%) (Auto) 13 % (24-48) L Monocytes (%) (Auto) 5 % (0-9) Eosinophils (%) (Auto) 1 % (0-3) Basophils (%) (Auto) 0 % (0-3) Neutrophils # (Auto) 9.8 x10^3uL (1.8-7.7) H Lymphocytes # (Auto) 1.5 x10^3/uL (1.0-4.8) Monocytes # (Auto) 0.5 x10^3/uL (0.0-1.1) Eosinophils # (Auto) 0.1 x10^3/uL (0.0-0.7) Basophils # (Auto) 0.0 x10^3/uL (0.0-0.2) Sodium Level 136 mmol/L (136-145) Potassium Level 3.6 mmol/L (3.5-5.1) Chloride Level 100 mmol/L (98-107) Carbon Dioxide Level 24 mmol/L (21-32) Anion Gap 12 (6-14) Blood Urea Nitrogen 5 mg/dL (7-20) L Creatinine 0.5 mg/dL (0.6-1.0) L Estimated GFR (Cockcroft-Gault) 180.5 Glucose Level 85 mg/dL (70-99) Calcium Level 8.9 mg/dL (8.5-10.1) Laboratory Tests 01/09/17 11:50 Laboratory Tests 01/09/17 11:50 EKG EKG [] Radiology/Procedures Radiology/Procedures [] [facility] [address] [place] [address] IMAGING REPORT Signed PATIENT: MANJIT PNEN ACCOUNT: [id number] : 1990 LOCATION: ER AGE: 26 SEX: F EXAM STATUS: REG ER ORD. PHYSICIAN: KENNETH BELLO MD REASON: lower ab pain PROCEDURE: OB < 14 WKS INDICATION:lower ab pain COMPARISON: 11/12/2016 FINDINGS: Focused ultrasound images are obtained through the uterus and adnexa. The cervix is seen with the placenta appearing to cover the internal cervical os. There is a hypoechoic region seen along placenta near cervical region. There is a heartbeat of 158. Intrauterine with estimated gestational age 14 weeks and 5 days with estimated due date of 07/05/2017. The maternal ovaries are not seen. IMPRESSION: Intrauterine is identified with estimated gestational age of 14 weeks and 6 days with a positive heartbeat. The placenta appears to be covering the internal cervical os at this time which can be seen with placenta previa. Continued follow-up will be needed to assess for change in location of the placenta relation to the cervix. In addition there is a small hypoechoic region seen along the edge of the placenta near the cervix. Could be seen with causes such as a small venous suárez although small hematoma in the region also in the differential. Recommend routine anomaly screening at 18-22 weeks. DICTATED and SIGNED BY: MITCHELL ZAMBRANO MD DATE: 01/09/17 8211 CC: KENNETH BELLO MD; NO PCP ~ Course & Med Decision Making Course & Med Decision Making Pertinent Labs and Imaging studies reviewed. (See chart for details) Patient presented with nausea and vomiting and I believe is related to her . I'm waiting on a ultrasound to ensure that the IVP is still present and viable. Still waiting for urinalysis. Patient tells me that their symptoms given during CC are improved. Time is now 1236 patient is still awaiting ultrasound. Is now 1:25 PM Patient tells me that their symptoms given during CC are improved. We reviewed labs and radiology reports with patient about getting a urine sample to ensure that she is not having an infected urine. Patient declines wanted to give a urine sample rather go home. She understands the risk of not diagnosing a UTI and early may progress for labor. She is okay accepting that risk. Patient which she feels better to tension headache is also improved with Tylenol orally. We talked about medication C for and she'll be discharged home on Tylenol Zofran for her tension headache and her nausea and vomiting. Her abdomen is soft on discharge evaluation. Impression: Threatened miscarriage, nausea vomiting, tension headache. Disposition: Discharged home with FINANCIAL RISK MANAGER PCP follow-up in 24 hrs. given precautions to return for increasing abdominal pain, vaginal bleeding or discharge or if she had any question or concerns [] Dragon Disclaimer Dragon Disclaimer This electronic medical record was generated, in whole or in part, using a voice recognition dictation system. Departure Departure Impression: Primary Impression: Abdominal pain Disposition: 01 HOME, SELF-CARE Condition: IMPROVED Referrals: NO PCP (PCP) Patient Instructions: Nausea and Vomiting, Threatened Miscarriage Additional Instructions: Please return for any new or increasing pain, vaginal bleeding or discharge, fever greater than 102.2 with any UTI symptoms or feel any questions or concerns. Scripts Ondansetron (ZOFRAN ODT) 4 Mg Tab.rapdis 4 MG PO BID Y for NAUSEA/VOMITING for 5 Days, #10 TAB Prov: KENNETH BELLO MD 01/09/17 Acetaminophen (TYLENOL) 325 Mg Tablet 1-2 TAB PO QID, #60 TAB 2 Refills Prov: KENNETH BELLO MD 01/09/17 KENNETH BELLO MD Jan 09, 2017 12:37
--- NOTE | 2017-01-09 13:02 | RAD ---
INDICATION:lower ab pain COMPARISON: 11/12/2016 FINDINGS: Focused ultrasound images are obtained through the uterus and adnexa. The cervix is seen with the placenta appearing to cover the internal cervical os. There is a hypoechoic region seen along placenta near cervical region. There is a heartbeat of 158. Intrauterine with estimated gestational age 14 weeks and 5 days with estimated due date of 07/05/2017. The maternal ovaries are not seen. IMPRESSION: Intrauterine is identified with estimated gestational age of 14 weeks and 6 days with a positive heartbeat. The placenta appears to be covering the internal cervical os at this time which can be seen with placenta previa. Continued follow-up will be needed to assess for change in location of the placenta relation to the cervix. In addition there is a small hypoechoic region seen along the edge of the placenta near the cervix. Could be seen with causes such as a small venous suárez although small hematoma in the region also in the differential. Recommend routine anomaly screening at 18-22 weeks.
[2017-01-09] MEDS ORDERED: ONDA4TAB10 PO (13:31)
[2017-01-09] MEDS ORDERED: ACET325T9 PO (13:31)
[2017-01-09 13:45] LABS: BILIRUBIN,URINE NEGATIVE (NEG); GLUCOSE,URINE NEGATIVE (NEG); NITRITE,URINE NEGATIVE (NEG); PH,URINE 6.5; PROTEIN,URINE NEGATIVE (NEG-TRACE)
[2017-01-09 14:00] LABS: BACTERIA,URINE MANY /HPF (0-FEW); RBC,URINE 0 /HPF (0-2); SQUAMOUS EPITHELIAL CELL,UR MOD /LPF
[2017-01-09 14:20] VITALS: BP 113/63
== END 2017-01-09 14:28 | disposition home or self-care (01) ==
LOC: ER 10:38
DX: O26.892 Other specified pregnancy related conditions, second trimester (principal); R10.9 Unspecified abdominal pain; M54.2 Cervicalgia; O99.342 Other mental disorders complicating pregnancy, second trimester; F32.9 Major depressive disorder, single episode, unspecified; O99.352 Diseases of the nervous system complicating pregnancy, second trimester; G44.209 Tension-type headache, unspecified, not intractable; Z3A.14 14 weeks gestation of pregnancy; Z91.041 Radiographic dye allergy status
CPT/HCPCS: 36415; 76801; 80048; 81001; 85027; 87086; 96361; 96374; 96375; 99285; J1200; J2405; J7030

== ENCOUNTER 2017-01-23 12:48 | Emergency (ER) | payer OTHER ==
[2017-01-23] MEDS ORDERED: IV NORMAL SALINE 1000ML BAG 1,000 ML IV ONE (13:15)
[2017-01-23 13:24] LABS: BASO # 0.1 x10^3/uL (0.0-0.2); BASO % 1 % (0-3); EOS % 2 % (0-3); HEMATOCRIT 41.8 % (36.0-47.0); HEMOGLOBIN 14.2 g/dL (12.0-15.5); LYMPH % 18 % (24-48); MEAN CORPUSCULAR HEMOGLOBIN 31 pg (25-35); MEAN CORPUSCULAR HGB CONC 34 g/dL (31-37); MEAN CORPUSCULAR VOLUME 92 fL (79-100); MONO % 5 % (0-9); NEUT % 76 % (31-73); PLATELET COUNT 205 x10^3/uL (140-400); RED BLOOD COUNT 4.55 x10^6/uL (3.50-5.40); WHITE BLOOD COUNT 11.5 x10^3/uL (4.0-11.0)
[2017-01-23 13:28] LABS: BILIRUBIN,URINE NEGATIVE (NEG); GLUCOSE,URINE NEGATIVE (NEG); NITRITE,URINE NEGATIVE (NEG); PH,URINE 6.5; PROTEIN,URINE NEGATIVE (NEG-TRACE)
[2017-01-23 13:37] LABS: CREATININE 0.5 mg/dL (0.6-1.0); GFR 180.5; POTASSIUM 3.7 mmol/L (3.5-5.1)
[2017-01-23 13:43] LABS: ALBUMIN 3.5 g/dL (3.4-5.0); TOTAL PROTEIN 7.6 g/dL (6.4-8.2)
[2017-01-23 13:44] LABS: ALBUMIN/GLOBULIN RATIO 0.9 (1.0-1.7); MAGNESIUM 1.7 mg/dL (1.8-2.4); TOTAL BILIRUBIN 0.5 mg/dL (0.2-1.0)
[2017-01-23 13:50] LABS: BACTERIA,URINE MANY /HPF (0-FEW); RBC,URINE 0 /HPF (0-2); SQUAMOUS EPITHELIAL CELL,UR MANY /LPF
[2017-01-23] MEDS ORDERED: NITR100C62 PO (14:13)
--- NOTE | 2017-01-23 14:14 | PHYS DOC ---
Past Medical History Past Medical History: Depression Additional Past Medical Histor: chronic back and hip pain Past Surgical History: , Other Additional Past Surgical Histo: R)ovarian cyst removal, HERNIA REPAIR Alcohol Use: None Drug Use: None Adult General Chief Complaint Chief Complaint: DIZZY/[facility]ED [facility] HPI Patient is a 26 year old female presenting to the emergency department for evaluation of a near syncopal episode while she was out walking to the park with her child. He is approximately 4 months and follows at over the [facility]. Patient says that she was walking for some time and she felt lightheaded and it should he was going to pass out however she did not so she called the ambulance. She says that she is feeling better now but she was hypotensive with EMS and her blood sugar was in the 60s. He says that she has not ate or drank anything today but she denies any abdominal pain fevers chills nausea vomiting dysuria hematuria vaginal bleeding or vaginal discharge. Currently she is in no obvious distress with normal vital signs. Review of Systems Review of Systems Constitutional: Denies fever or chills [] Eyes: Denies change in visual acuity, redness, or eye pain [] HENT: Denies nasal congestion or sore throat [] Respiratory: Denies cough or shortness of breath [] Cardiovascular: No additional information not addressed in HPI [] GI: Denies abdominal pain, nausea, vomiting, bloody stools or diarrhea [] : Denies dysuria or hematuria [] Musculoskeletal: Denies back pain or joint pain [] Integument: Denies rash or skin lesions [] Neurologic: Denies headache, focal weakness or sensory changes [] Current Medications Current Medications Current Medications Medications (Trade) Dose Ordered Sig/Jordi Start Time Stop Time Status Last Admin Dose Admin Sodium Chloride 1,000 ml @ 1,000 mls/hr 1X ONCE 01/23/17 13:15 01/23/17 14:14 DC 01/23/17 13:20 1,000 MLS/HR Allergies Allergies Allergies Coded Allergies Type Severity Reaction Last Updated Verified Iodinated Contrast- Oral and IV Dye Allergy Intermediate burn & itch 07/20/15 Yes Physical Exam Physical Exam Constitutional: Well developed, well nourished, no acute distress, non-toxic appearance. [] HENT: Normocephalic, atraumatic, bilateral external ears normal, oropharynx moist, no oral exudates, nose normal. [] Eyes: PERRLA, EOMI, conjunctiva normal, no discharge. [] Neck: Normal range of motion, no tenderness, supple, no stridor. [] Cardiovascular:Heart rate regular rhythm, no murmur [] Lungs & Thorax: Bilateral breath sounds clear to auscultation [] Abdomen: Bowel sounds normal, soft, no tenderness, no masses, no pulsatile masses. [] Skin: Warm, dry, no erythema, no rash. [] Back: No tenderness, no CVA tenderness. [] Extremities: No tenderness, no cyanosis, no clubbing, ROM intact, no edema. [] Neurologic: Alert and oriented X 3, normal motor function, normal sensory function, no focal deficits noted. [] Psychologic: Affect normal, judgement normal, mood normal. [] Current Patient Data Vital Signs Vital Signs Date Time Temp Pulse Resp B/P (MAP) Pulse Ox O2 Delivery O2 Flow Rate FiO2 01/23/17 12:53 98.1 75 18 107/53 (71) 100 Room Air 98.1 Lab Values Laboratory Tests Test 01/23/17 13:00 01/23/17 13:15 Glucose (Fingerstick) 73 mg/dL (70-99) White Blood Count 11.5 x10^3/uL (4.0-11.0) H Red Blood Count 4.55 x10^6/uL (3.50-5.40) Hemoglobin 14.2 g/dL (12.0-15.5) Hematocrit 41.8 % (36.0-47.0) Mean Corpuscular Volume 92 fL (79-100) Mean Corpuscular Hemoglobin 31 pg (25-35) Mean Corpuscular Hemoglobin Concent 34 g/dL (31-37) Red Cell Distribution Width 13.0 % (11.5-14.5) Platelet Count 205 x10^3/uL (140-400) Neutrophils (%) (Auto) 76 % (31-73) H Lymphocytes (%) (Auto) 18 % (24-48) L Monocytes (%) (Auto) 5 % (0-9) Eosinophils (%) (Auto) 2 % (0-3) Basophils (%) (Auto) 1 % (0-3) Neutrophils # (Auto) 8.7 x10^3uL (1.8-7.7) H Lymphocytes # (Auto) 2.0 x10^3/uL (1.0-4.8) Monocytes # (Auto) 0.5 x10^3/uL (0.0-1.1) Eosinophils # (Auto) 0.2 x10^3/uL (0.0-0.7) Basophils # (Auto) 0.1 x10^3/uL (0.0-0.2) Urine Collection Type Unknown Urine Color Yellow Urine Clarity Clear Urine pH 6.5 Urine Specific [place] 1.020 Urine Protein Negative mg/dL (NEG-TRACE) Urine Glucose (UA) Negative mg/dL (NEG) Urine Ketones (Stick) >=80 mg/dL (NEG) Urine Blood Negative (NEG) Urine Nitrite Negative (NEG) Urine Bilirubin Negative (NEG) Urine Urobilinogen Dipstick 1.0 mg/dL (0.2 mg/dL) Urine Leukocyte Esterase Small (NEG) Urine RBC 0 /HPF (0-2) Urine WBC 1-4 /HPF (0-4) Urine Squamous Epithelial Cells Many /LPF Urine Bacteria Many /HPF (0-FEW) Urine Mucus Marked /LPF Sodium Level 136 mmol/L (136-145) Potassium Level 3.7 mmol/L (3.5-5.1) Chloride Level 102 mmol/L (98-107) Carbon Dioxide Level 23 mmol/L (21-32) Anion Gap 11 (6-14) Blood Urea Nitrogen 5 mg/dL (7-20) L Creatinine 0.5 mg/dL (0.6-1.0) L Estimated GFR (Cockcroft-Gault) 180.5 BUN/Creatinine Ratio 10 (6-20) Glucose Level 77 mg/dL (70-99) Calcium Level 9.0 mg/dL (8.5-10.1) Magnesium Level 1.7 mg/dL (1.8-2.4) L Total Bilirubin 0.5 mg/dL (0.2-1.0) Aspartate Amino Transferase (AST) 16 U/L (15-37) Alanine Aminotransferase (ALT) 15 U/L (14-59) Alkaline Phosphatase 71 U/L (46-116) Total Protein 7.6 g/dL (6.4-8.2) Albumin 3.5 g/dL (3.4-5.0) Albumin/Globulin Ratio 0.9 (1.0-1.7) L Laboratory Tests 01/23/17 13:15 Laboratory Tests 01/23/17 13:15 EKG EKG [] Radiology/Procedures Radiology/Procedures Bedside ultrasound showed intrauterine with heart tones in the 140s Course & Med Decision Making Course & Med Decision Making Patient was given food to eat and fluids to drink and I told her that she needs to drink a lot of water and Gatorade today and eat a normal diet as she has ketones in her urine. . In her urine as well which is likely contaminant given all of the epithelial cells. Given she is we'll go ahead and start on Macrobid. Patient has repeat benign physical exam and vital signs so she'll be discharged in stable condition. Aware and agreeable with plan and verbalized understanding of the need for short-term follow-up in the strict ER return precautions discussed including worsening pain dizziness or other general concerns. Dragon Disclaimer Dragon Disclaimer This electronic medical record was generated, in whole or in part, using a voice recognition dictation system. Departure Departure Impression: Primary Impression: Near syncope Additional Impressions: UTI (urinary tract infection) Hypomagnesemia Ketonuria Disposition: 01 HOME, SELF-CARE Condition: GOOD Referrals: NO PCP (PCP) Patient Instructions: Near-Syncope Scripts Nitrofurantoin Monohyd/M-Cryst (MACROBID 100 MG CAPSULE) 100 Mg Capsule 1 CAP PO BID, #14 CAP Prov: SAHARA WALTERS DO 01/23/17 Problem Qualifiers SAHARA WALTERS DO Jan 23, 2017 14:13
[2017-01-23 14:20] VITALS: BP 108/59
--- NOTE | 2017-01-24 13:16 | EKG ---
[facility] [address] [place] [address] Test Date: 2017-01-23 Test Time: 13:18:14 Pat Name: MANJIT PENN Department: Room: Gender: F [employer]: : 1990 Requested By: SAHARA WALTERS Order Number: [id number] Reading MD: Lito Arechiga Measurements Intervals [place] Rate: 77 P: 0 PA: 150 QRS: 43 QRSD: 68 T: 16 QT: 368 QTc: 418 Interpretive Statements SINUS RHYTHM NORMAL ECG RI6.01 Unconfirmed report Compared to ECG 05/20/2012 18:32:31 No significant changes Electronically Signed On 01-25-2017 15:37:43 CDT by Lito Arechiga
== END 2017-01-23 14:30 | disposition home or self-care (01) ==
LOC: ER 12:48
DX: O26.892 Other specified pregnancy related conditions, second trimester (principal); R55 Syncope and collapse; O23.42 Unspecified infection of urinary tract in pregnancy, second trimester; E83.42 Hypomagnesemia; R82.4 Acetonuria; G89.29 Other chronic pain; Z91.041 Radiographic dye allergy status; Z3A.16 16 weeks gestation of pregnancy
CPT/HCPCS: 36415; 80053; 81001; 82962; 83735; 85027; 87086; 93005; 96360; 99285; J7030

== ENCOUNTER 2017-02-20 17:36 | Emergency (ER) | payer OTHER ==
[~2017-02-20] VITALS: Ht 160 cm; Wt 62.6 kg
[~2017-02-20 17:36] MED LIST changes: +NITR100C62 PO
[2017-02-20 18:48] LABS: BILIRUBIN,URINE NEGATIVE (NEG); GLUCOSE,URINE NEGATIVE (NEG); NITRITE,URINE NEGATIVE (NEG); PH,URINE 7.5; PROTEIN,URINE NEGATIVE (NEG-TRACE); UROBILINOGEN,URINE 0.2 mg/dL (0.2 mg/dL)
[2017-02-20 18:57] LABS: BACTERIA,URINE MODERATE /HPF (0-FEW); RBC,URINE 0 /HPF (0-2); SQUAMOUS EPITHELIAL CELL,UR MOD /LPF
[2017-02-20 19:57] LABS: BASO # 0.1 x10^3/uL (0.0-0.2); BASO % 1 % (0-3); EOS % 1 % (0-3); HEMATOCRIT 37.6 % (36.0-47.0); HEMOGLOBIN 12.8 g/dL (12.0-15.5); LYMPH # 1.9 x10^3/uL (1.0-4.8); LYMPH % 17 % (24-48); MEAN CORPUSCULAR HEMOGLOBIN 32 pg (25-35); MEAN CORPUSCULAR HGB CONC 34 g/dL (31-37); MEAN CORPUSCULAR VOLUME 93 fL (79-100); MONO % 6 % (0-9); NEUT % 75 % (31-73); PLATELET COUNT 216 x10^3/uL (140-400); RED BLOOD COUNT 4.05 x10^6/uL (3.50-5.40); RED CELL DISTRIBUTION WIDTH 12.7 % (11.5-14.5); WHITE BLOOD COUNT 11.1 x10^3/uL (4.0-11.0)
[2017-02-20 20:13] LABS: CALCIUM 9.1 mg/dL (8.5-10.1); CREATININE 0.5 mg/dL (0.6-1.0); GFR 180.5; POTASSIUM 3.3 mmol/L (3.5-5.1)
[2017-02-20 20:19] LABS: ALBUMIN 3.1 g/dL (3.4-5.0); ALBUMIN/GLOBULIN RATIO 0.8 (1.0-1.7); TOTAL BILIRUBIN 0.2 mg/dL (0.2-1.0); TOTAL PROTEIN 7.1 g/dL (6.4-8.2)
--- NOTE | 2017-02-20 20:37 | RAD ---
EXAM: Obstetric sonogram. HISTORY: Blunt trauma. TECHNIQUE: Sonographic imaging of a gravid uterus was performed. COMPARISON: 01/09/2017. FINDINGS: There is a single intrauterine fetus in breech presentation with a heart rate of 162 bpm. There is a grade 0 anterior placenta without evidence of placenta previa or abruption. The amniotic fluid index is normal. The biparietal diameter is 4.88 cm, corresponding with 20 weeks and 5 days. The head circumference is 18.49 cm, corresponding with 20 weeks and 6 days. The abdominal circumference is 16.42 cm, corresponding with 21 weeks and 3 days. The femoral length is 3.50 cm, corresponding with 21 weeks and 0 days. The estimated gestational age based on combined ultrasound measurements is 21 weeks and 0 days. The estimated weight is 408 g. The head circumference to abdominal ratio is 1.13. The anatomy is not formally assessed. There is normal body movement. The cervix is normal in length. IMPRESSION: 1. Single intrauterine fetus with a heart rate of 162 bpm and estimated gestational age based on ultrasound measurements of 21 weeks and 0 days. 2. Note is made that the anatomy is not formally assessed. Short-term follow-up with a dedicated anatomy survey is recommended if not previously performed. Electronically signed by: Eli Live MD (02/20/2017 8:33 PM) [facility]
[2017-02-20 20:52] VITALS: BP 129/59
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
== END 2017-02-20 21:23 | disposition home or self-care (01) ==
LOC: ER 17:36
DX: O26.892 Other specified pregnancy related conditions, second trimester (principal); R10.33 Periumbilical pain; O99.342 Other mental disorders complicating pregnancy, second trimester; F32.9 Major depressive disorder, single episode, unspecified; Z3A.20 20 weeks gestation of pregnancy; Z91.041 Radiographic dye allergy status; W22.8XXA Striking against or struck by other objects, initial encounter; Y93.B2 Activity, push-ups, pull-ups, sit-ups; Y99.8 Other external cause status; Y92.481 Parking lot as the place of occurrence of the external cause
CPT/HCPCS: 36415; 76815; 80053; 81001; 85025; 87086; 99285-25

== ENCOUNTER 2017-03-17 07:51 | Observation (INO) | payer OTHER ==
[~2017-03-17 07:51] MED LIST changes: +NAPR-682 PO; -NAPR550T PO
[2017-03-17] MEDS ORDERED: PROAIR HFA8.5 GM INH (10:04)
[2017-03-17] MEDS ORDERED: AZIT250T6 PO (10:04)
== END 2017-03-17 08:25 | disposition home or self-care (01) ==
LOC: 3 SO LND 07:51
PROVIDERS: ADMIT Specialist; ATTEND Specialist
DX: O36.8120 Decreased fetal movements, second trimester, not applicable or unspecified (principal); O26.892 Other specified pregnancy related conditions, second trimester; R05 Cough; R06.02 Shortness of breath; J02.9 Acute pharyngitis, unspecified; Z3A.00 Weeks of gestation of pregnancy not specified
CPT/HCPCS: G0379

== ENCOUNTER 2017-03-17 08:37 | Emergency (ER) | payer OTHER ==
[~2017-03-17] VITALS: Ht 162.6 cm; Wt 64.0 kg
[2017-03-17] MEDS ORDERED: IPRATRPIUM/ALBUTEROL 0.5/2.5MG 3 ML NEBU. NEB ONE (09:30)
[2017-03-17 09:51] LABS: BASO % 0 % (0-3); EOS % 2 % (0-3); HEMATOCRIT 40.4 % (36.0-47.0); HEMOGLOBIN 13.8 g/dL (12.0-15.5); LYMPH # 0.8 x10^3/uL (1.0-4.8); LYMPH % 6 % (24-48); MEAN CORPUSCULAR HEMOGLOBIN 32 pg (25-35); MEAN CORPUSCULAR HGB CONC 34 g/dL (31-37); MEAN CORPUSCULAR VOLUME 93 fL (79-100); MONO % 5 % (0-9); NEUT % 86 % (31-73); PLATELET COUNT 185 x10^3/uL (140-400); RED BLOOD COUNT 4.34 x10^6/uL (3.50-5.40); RED CELL DISTRIBUTION WIDTH 13.5 % (11.5-14.5); WHITE BLOOD COUNT 13.7 x10^3/uL (4.0-11.0)
[2017-03-17 09:55] LABS: CALCIUM 8.9 mg/dL (8.5-10.1); CREATININE 0.5 mg/dL (0.6-1.0); GFR 180.5; POTASSIUM 3.3 mmol/L (3.5-5.1)
--- NOTE | 2017-03-17 09:57 | RAD ---
PA and lateral chest radiographs 03/17/2017. Clinical History: Cough for 2 days.. PA and lateral digital radiographs of the chest were obtained. Comparison study is dated 07/22/2016. No previous studies are available for comparison. The cardiac and mediastinal silhouettes are within normal limits in size and configuration. No pulmonary infiltrate is seen. No pleural effusion or pneumothorax is noted. The osseous structures are grossly intact. Impression: No radiographic evidence of active cardiopulmonary disease.
[2017-03-17] MEDS ORDERED: AZIT250T6 PO (10:04)
[2017-03-17] MEDS ORDERED: PROAIR HFA8.5 GM INH (10:04)
--- NOTE | 2017-03-17 10:04 | PHYS DOC ---
Past Medical History Past Medical History: Depression Additional Past Medical Histor: chronic back and hip pain Past Surgical History: , Other Additional Past Surgical Histo: R)ovarian cyst removal, HERNIA REPAIR Alcohol Use: None Drug Use: None Adult General Chief Complaint Chief Complaint: COUGH HPI HPI 26-year-old female presenting to the emergency department with intermittent shortness of breath productive cough and purulent green sputum production over the last 3 days. Patient denies fever at home and is not febrile here. She is currently and was evaluated prior to being seen here at labor and delivery immediately prior to arrival for "decreased movement". Review of systems is negative for abdominal pain nausea vomiting. She denies recent trauma. All other review of systems is negative unless otherwise noted in history of present illness. ED course: 26-year-old female presenting with a productive cough and shortness of breath over the past 2 days. Patient was evaluated in labor and delivery for evaluation prior to my evaluation. Reportedly cleared by labor and delivery. Chest x-ray and blood work obtained. Nebulizer given in the emergency department. Chest x-ray negative for acute infiltrate. Blood work shows nonspecific leukocytosis. Reexamination the patient is feeling better. Ultrasound of the abdomen shows intrauterine viable . Patient was prescribed azithromycin for pneumonia to follow-up with her OB in 2-3 days. They were to return if their symptoms worsened or if they were concerned for any reason. [id number] discharge instructions and return precautions were given. Patient's questions were answered to their satisfaction. Patient is comfortable plan. Review of Systems Review of Systems SEE ABOVE. Current Medications Current Medications Current Medications Medications (Trade) Dose Ordered Sig/[facility] Start Time Stop Time Status Last Admin Dose Admin Albuterol/ Ipratropium (Duoneb) 3 ml 1X ONCE 03/17/17 09:30 03/17/17 09:31 DC 03/17/17 10:23 3 ML Allergies Allergies Allergies Coded Allergies Type Severity Reaction Last Updated Verified Iodinated Contrast- Oral and IV Dye Allergy Intermediate burn & itch 07/20/15 Yes Physical Exam Physical Exam SEE ABOVE Constitutional: Well developed, well nourished, no acute distress, non-toxic appearance. [] HENT: Normocephalic, atraumatic, bilateral external ears normal, oropharynx moist, no oral exudates, nose normal. [] Eyes: PERRLA, EOMI, conjunctiva normal, no discharge. [] Neck: Normal range of motion, no tenderness, supple, no stridor. [] Cardiovascular:Heart rate regular rhythm, no murmur [] Lungs & Thorax: Bilateral breath sounds clear to auscultation. No wheezing rhonchi or crackles. Abdomen: Bowel sounds normal, soft, no tenderness, no masses, no pulsatile masses. [] Skin: Warm, dry, no erythema, no rash. [] Back: No tenderness, no CVA tenderness. [] Extremities: No tenderness, no cyanosis, no clubbing, ROM intact, no edema. [] Neurologic: Alert and oriented X 3, normal motor function, normal sensory function, no focal deficits noted. [] Psychologic: Affect normal, judgement normal, mood normal. [] Current Patient Data Vital Signs Vital Signs Date Time Temp Pulse Resp B/P (MAP) Pulse Ox O2 Delivery O2 Flow Rate FiO2 03/17/17 10:26 Room Air 03/17/17 09:14 98.5 94 18 129/59 (82) 99 98.5 Lab Values Laboratory Tests Test 03/17/17 09:30 White Blood Count 13.7 x10^3/uL (4.0-11.0) H Red Blood Count 4.34 x10^6/uL (3.50-5.40) Hemoglobin 13.8 g/dL (12.0-15.5) Hematocrit 40.4 % (36.0-47.0) Mean Corpuscular Volume 93 fL (79-100) Mean Corpuscular Hemoglobin 32 pg (25-35) Mean Corpuscular Hemoglobin Concent 34 g/dL (31-37) Red Cell Distribution Width 13.5 % (11.5-14.5) Platelet Count 185 x10^3/uL (140-400) Neutrophils (%) (Auto) 86 % (31-73) H Lymphocytes (%) (Auto) 6 % (24-48) L Monocytes (%) (Auto) 5 % (0-9) Eosinophils (%) (Auto) 2 % (0-3) Basophils (%) (Auto) 0 % (0-3) Neutrophils # (Auto) 11.8 x10^3uL (1.8-7.7) H Lymphocytes # (Auto) 0.8 x10^3/uL (1.0-4.8) L Monocytes # (Auto) 0.7 x10^3/uL (0.0-1.1) Eosinophils # (Auto) 0.3 x10^3/uL (0.0-0.7) Basophils # (Auto) 0.0 x10^3/uL (0.0-0.2) Segmented Neutrophils % 76 % (35-66) H Band Neutrophils % 7 % (0-9) Lymphocytes % 8 % (24-48) L Monocytes % 6 % (0-10) Eosinophils % 3 % (0-5) Platelet Estimate Adequate (ADEQUATE) Sodium Level 136 mmol/L (136-145) Potassium Level 3.3 mmol/L (3.5-5.1) L Chloride Level 100 mmol/L (98-107) Carbon Dioxide Level 28 mmol/L (21-32) Anion Gap 8 (6-14) Blood Urea Nitrogen 3 mg/dL (7-20) L Creatinine 0.5 mg/dL (0.6-1.0) L Estimated GFR (Cockcroft-Gault) 180.5 Glucose Level 93 mg/dL (70-99) Calcium Level 8.9 mg/dL (8.5-10.1) Laboratory Tests 03/17/17 09:30 Laboratory Tests 03/17/17 09:30 EKG EKG [] Radiology/Procedures Radiology/Procedures [] Course & Med Decision Making Course & Med Decision Making Pertinent Labs and Imaging studies reviewed. (See chart for details) [] Dragon Disclaimer Dragon Disclaimer This electronic medical record was generated, in whole or in part, using a voice recognition dictation system. Departure Departure Impression: Primary Impression: Cough Additional Impression: Disposition: 01 HOME, SELF-CARE Condition: STABLE Referrals: NO PCP (PCP) MANJU WILLINGHAM MD Patient Instructions: Cough, Adult, [id number] Additional Instructions: Thank you for allowing us to participate in your care today. Followup with your OB in 3 days. Call your Primary Doctor tomorrow and inform them of your visit today. If you do not have a primary care provider you can ask for a list of our primary care providers. Return to the emergency department you have any new or concerning findings. This should be evaluated by the primary care physician and any necessary consulting services for continued management within a few days after discharge. Return to emergency room if you have any new or concerning symptoms including but not limited to fever, chills, nausea, vomiting, intractable pain, any new rashes, chest pain, shortness of air, uncontrolled bleeding, difficulty breathing, and/or vision loss. Scripts Albuterol Sulfate (PROAIR HFA INHALER) 8.5 Gm Hfa.aer.ad 1 PUFF INH PRN Q6HRS Y for SHORTNESS OF BREATH, #1 INHALER 0 Refills Prov: MARCELLA VIEIRA MD 03/17/17 Azithromycin (AZITHROMYCIN TABLET) 250 Mg Tablet 1 PKG PO UD, #6 TAB Prov: MARCELLA VIEIRA MD 03/17/17 Problem Qualifiers MARCELLA VIEIRA MD Mar 17, 2017 10:04
--- NOTE | 2017-03-17 10:17 | RAD ---
Limited OB ultrasound greater than 14 weeks 03/17/2017 Clinical History: Decreased movement.. Technique: A real time ultrasound examination of the gravid uterus was performed. Multiple images were obtained. Findings: Comparison study is dated 02/20/2017. There is a single living IUP. The fetus is in a cephalic position. cardiac and somatic activity is seen. The heart rate is 141 beats permit minute. The placenta is anterior. No focal abnormality of the placenta is seen. The amniotic fluid level is within normal limits. The following measurements were obtained: BPD 6.1 cm 24 weeks 5 days HC 22.5 cm 24 weeks 4 days AC 19.3 cm 24 weeks 0 days FL 4.2 cm 23 weeks 3 days The estimated gestational age by ultrasound is 24 weeks 1 day . plus or minus a standard deviation of 10 days. The estimated date of delivery of by ultrasound on today's study is 07/06/2017 on today's study. Since previous examination has been appropriate interval growth. Detailed evaluation of anatomy was not performed. No obvious abnormality is seen. Impression: Single living IUP with an estimated gestational age by ultrasound on today's study of 24 weeks 1 day plus or minus a standard deviation of 10 days. Since the previous examination there has been appropriate interval growth..
[2017-03-17 10:35] LABS: % EOS 3 % (0-5)
[2017-03-17 10:36] LABS: PLT ESTIMATE ADEQUATE (ADEQUATE)
[2017-03-17 11:13] VITALS: BP 126/69
== END 2017-03-17 11:15 | disposition home or self-care (01) ==
LOC: ER 08:37
DX: O26.892 Other specified pregnancy related conditions, second trimester (principal); R05 Cough; R06.02 Shortness of breath; G89.29 Other chronic pain; Z3A.24 24 weeks gestation of pregnancy; Z91.041 Radiographic dye allergy status
CPT/HCPCS: 36415; 71020; 76805; 80048; 85007; 85025; 94250; 94640; 99285; J7620

== ENCOUNTER 2017-04-19 19:14 | Observation (INO) | payer OTHER ==
[~2017-04-19 19:14] MED LIST changes: +AZIT250T6 PO; +PROAIR HFA8.5 GM INH
[2017-04-19] MEDS ORDERED: IV RINGERS,LACTATED 1000ML 1,000 ML IV SCH (19:25)
[2017-04-19] MEDS ORDERED: ACETAMINOPHEN 325 MG TABLET. PO PRN (19:30)
[2017-04-19] MEDS ORDERED: ONDANSETRON PF 4 MG/2 ML VIAL. IV PRN (19:30)
[2017-04-19 19:43] LABS: BILIRUBIN,URINE NEGATIVE (NEG); GLUCOSE,URINE NEGATIVE (NEG); NITRITE,URINE NEGATIVE (NEG); PH,URINE 6.5; PROTEIN,URINE NEGATIVE (NEG-TRACE); UROBILINOGEN,URINE 0.2 mg/dL (0.2 mg/dL)
[2017-04-19 19:47] LABS: BARBITURATES NEG (NEG); BENZODIAZEPINES NEG (NEG); CANNABINOIDS NEG (NEG); COCAINE NEG (NEG); METHADONE NEG (NEG); OPIATES NEG (NEG); PHENCYCLIDINE NEG (NEG)
[2017-04-19 19:57] LABS: BACTERIA,URINE MANY /HPF (0-FEW); RBC,URINE 0 /HPF (0-2); SQUAMOUS EPITHELIAL CELL,UR MOD /LPF
== END 2017-04-19 21:10 | disposition home or self-care (01) ==
LOC: 3 SO LND 19:14
PROVIDERS: ADMIT Obstetrics & Gynecology; ATTEND Obstetrics & Gynecology
DX: O21.8 Other vomiting complicating pregnancy (principal); K92.0 Hematemesis; O26.893 Other specified pregnancy related conditions, third trimester; R23.3 Spontaneous ecchymoses; Z3A.29 29 weeks gestation of pregnancy
CPT/HCPCS: 80307; 81001; 87086; G0378; G0379; G0479

== ENCOUNTER 2017-06-07 12:38 | Observation (INO) | payer OTHER ==
[2017-06-07] MEDS ORDERED: IV RINGERS,LACTATED 1000ML 1,000 ML IV (12:59)
[2017-06-07 13:17] LABS: BILIRUBIN,URINE NEGATIVE (NEG); GLUCOSE,URINE NEGATIVE (NEG); NITRITE,URINE NEGATIVE (NEG); PROTEIN,URINE NEGATIVE (NEG-TRACE); UROBILINOGEN,URINE 0.2 mg/dL (0.2 mg/dL)
[2017-06-07 13:22] LABS: SQUAMOUS EPITHELIAL CELL,UR MOD /LPF
[2017-06-07 13:23] LABS: BACTERIA,URINE MODERATE /HPF (0-FEW)
[2017-06-07 13:28] LABS: BARBITURATES NEG (NEG); BENZODIAZEPINES NEG (NEG); CANNABINOIDS NEG (NEG); COCAINE NEG (NEG); METHADONE NEG (NEG); OPIATES NEG (NEG); PHENCYCLIDINE NEG (NEG)
[2017-06-07 13:37] LABS: ETHANOL, URINE NEG (NEG)
== END 2017-06-07 18:00 | disposition home or self-care (01) ==
LOC: 3 SO LND 12:38
DX: O26.899 Other specified pregnancy related conditions, unspecified trimester (principal); Z3A.00 Weeks of gestation of pregnancy not specified
CPT/HCPCS: 80307; 81001; 87086; G0378; G0379

== ENCOUNTER 2017-10-17 12:11 | Emergency (ER) | payer OTHER ==
[2017-10-17] MEDS: IBUPROFEN 800 MG TABLET. PO (12:41)
[2017-10-17 12:55] LABS: BILIRUBIN,URINE NEGATIVE (NEG); CLARITY,URINE CLEAR; COLOR,URINE YELLOW; GLUCOSE,URINE NEGATIVE (NEG); NITRITE,URINE NEGATIVE (NEG); PROTEIN,URINE NEGATIVE (NEG-TRACE); UROBILINOGEN,URINE 0.2 mg/dL (0.2 mg/dL)
[2017-10-17 13:03] LABS: BACTERIA,URINE 0 /HPF (0-FEW); RBC,URINE >40 /HPF (0-2); SQUAMOUS EPITHELIAL CELL,UR MANY /LPF; WBC,URINE >40 /HPF (0-4)
== END 2017-10-17 13:25 | disposition home or self-care (01) ==
LOC: ER 12:11
DX: N39.0 Urinary tract infection, site not specified (principal); N94.6 Dysmenorrhea, unspecified; Z90.49 Acquired absence of other specified parts of digestive tract; Z98.890 Other specified postprocedural states
CPT/HCPCS: 81001; 87086; 99284

== ENCOUNTER 2017-11-01 20:50 | Emergency (ER) | payer OTHER ==
[2017-11-01] MEDS: ACETAMINOPHEN 325 MG TABLET. PO (22:04)
== END 2017-11-01 22:24 | disposition home or self-care (01) ==
LOC: ER 20:50
DX: S92.534A Nondisplaced fracture of distal phalanx of right lesser toe(s), initial encounter for closed fracture (principal); G89.29 Other chronic pain; Z91.041 Radiographic dye allergy status; W22.8XXA Striking against or struck by other objects, initial encounter; Y93.89 Activity, other specified; Y99.8 Other external cause status; Y92.89 Other specified places as the place of occurrence of the external cause
CPT/HCPCS: 73630; 99284

== ENCOUNTER 2018-01-15 20:11 | Emergency (ER) | payer OTHER ==
[2018-01-15 20:38] LABS: URINE HCG POC HCG NEGATIVE (Negative)
[2018-01-15 20:49] LABS: BILIRUBIN,URINE NEGATIVE (NEG); CLARITY,URINE CLOUDY; COLOR,URINE YELLOW; GLUCOSE,URINE NEGATIVE (NEG); NITRITE,URINE NEGATIVE (NEG); PROTEIN,URINE NEGATIVE (NEG-TRACE); UROBILINOGEN,URINE 0.2 mg/dL (0.2 mg/dL)
[2018-01-15 21:11] LABS: BACTERIA,URINE FEW /HPF (0-FEW); RBC,URINE OCC /HPF (0-2); SQUAMOUS EPITHELIAL CELL,UR FEW /LPF; WBC,URINE OCC /HPF (0-4)
[2018-01-15] MEDS: metroNIDAZOLE 500 MG TABLET PO (21:55)
== END 2018-01-15 22:00 | disposition home or self-care (01) ==
LOC: ER 20:11
DX: N76.0 Acute vaginitis (principal); B96.89 Other specified bacterial agents as the cause of diseases classified elsewhere; F32.9 Major depressive disorder, single episode, unspecified; G89.29 Other chronic pain; Z91.041 Radiographic dye allergy status
CPT/HCPCS: 81001; 81025; 87491; 87591; 99283; 99284; Q0111

== ENCOUNTER 2018-07-02 15:08 | Emergency (ER) | payer OTHER ==
[~2018-07-02] VITALS: Ht 162.6 cm; Wt 73.5 kg
[~2018-07-02 15:08] MED LIST changes: +ALBU2.5V8 INH; +FLUC150T PO; -HYDR-2766 PO; +HYDR-2769 PO; +HYDR-3164 PO; -HYDR-971 PO; +METR-84 PO; -METR500T8 PO; -PROAIR HFA8.5 GM INH
[2018-07-02 17:15] VITALS: BP 118/73
--- NOTE | 2018-07-02 17:17 | PHYS DOC ---
Past Medical History Past Medical History: Depression Additional Past Medical Histor: chronic back and hip pain Past Surgical History: , Other Additional Past Surgical Histo: R)ovarian cyst removal, HERNIA REPAIR Alcohol Use: Rarely Drug Use: None Adult General Chief Complaint Chief Complaint: ABDOMINAL PAIN HPI HPI 27-year-old female presents to ER for complaints of vaginal discharge and foul odor. Patient reports she is also having foul odor while urinating with concerns she may have UTI. Patient reports intermittent lower abdominal cramping denies any nausea or vomiting. Patient's LMP ended 2 days ago. Patient reports she recently had unprotected sex with her ex boyfriend and developed vaginal discharge following that intercourse. Patient denies any other symptoms. Patient denies fever. Review of Systems Review of Systems Constitutional: Denies fever or chills [] Cardiovascular: No additional information not addressed in HPI [] GI: Denies nausea, vomiting, bloody stools or diarrhea. Reports intermittent lower abd cramping : Reports dysuria and vaginal discharge/foul odor Musculoskeletal: Denies back pain or joint pain [] Integument: Denies rash or skin lesions [] Neurologic: Denies headache, focal weakness or sensory changes [] All other systems were reviewed and found to be within normal limits, except as documented in this note. Allergies Allergies Allergies Coded Allergies Type Severity Reaction Last Updated Verified Iodinated Contrast- Oral and IV Dye Allergy Intermediate burn & itch 07/20/15 Yes Physical Exam Physical Exam Constitutional: Well developed, well nourished, no acute distress, non-toxic appearance. [] HENT: Normocephalic, atraumatic, bilateral external ears normal, oropharynx moist, no oral exudates, nose normal. [] Eyes: PERRLA, EOMI, conjunctiva normal, no discharge. [] Neck: Normal range of motion, no tenderness, supple, no stridor. [] Cardiovascular:Heart rate regular rhythm, no murmur [] Lungs & Thorax: Bilateral breath sounds clear to auscultation [] Abdomen: Bowel sounds normal, soft, no tenderness, no masses, no pulsatile masses. [] Skin: Warm, dry, no erythema, no rash. [] Back: No tenderness, no CVA tenderness. [] Extremities: No tenderness, no cyanosis, no clubbing, ROM intact, no edema. [] Neurologic: Alert and oriented X 3, normal motor function, normal sensory function, no focal deficits noted. [] Psychologic: Affect normal, judgement normal, mood normal. [] Current Patient Data Vital Signs Vital Signs Date Time Temp Pulse Resp B/P (MAP) Pulse Ox O2 Delivery O2 Flow Rate FiO2 07/02/18 17:15 75 18 118/73 (88) 100 Room Air 07/02/18 16:45 98.9 98.9 Lab Values Laboratory Tests Test 07/02/18 16:30 07/02/18 17:35 Urine Collection Type Unknown Urine Color Yellow Urine Clarity Cloudy Urine pH 7.0 Urine Specific [place] 1.025 Urine Protein Negative mg/dL (NEG-TRACE) Urine Glucose (UA) Negative mg/dL (NEG) Urine Ketones (Stick) Negative mg/dL (NEG) Urine Blood Negative (NEG) Urine Nitrite Positive (NEG) Urine Bilirubin Negative (NEG) Urine Urobilinogen Dipstick 0.2 mg/dL (0.2 mg/dL) Urine Leukocyte Esterase Small (NEG) Urine RBC Occ /HPF (0-2) Urine WBC 5-10 /HPF (0-4) Urine Squamous Epithelial Cells Many /LPF Urine Bacteria Many /HPF (0-FEW) Urine Mucus Marked /LPF Urine Test Negative (NEG) Chlamydia DNA Probe Negative (Negative) Neisseria gonorrhoeae DNA Probe Negative (Negative) Microbiology 07/02/18 Wet Prep - Final, Complete 07/02/18 Urine Culture - Preliminary, Resulted 07/02/18 Urine Culture Result 1 (FOSTER) - Preliminary, Resulted Microbiology 07/02/18 Wet Prep - Final, Complete EKG EKG [] Radiology/Procedures Radiology/Procedures Pelvic Exam: DONTRELL Kelly present 1730 Abdomen: Nontender External Genitalia: Normal Skin no lesions or rash Speculum: Normal vaginal mucosa, Bimanual: No adnexal masses or tenderness, No CMT Course & Med Decision Making Course & Med Decision Making Pertinent Labs reviewed. (See chart for details) Patient was evaluated in the ER for complaints of dysuria, vaginal discharge, and foul odor. Pelvic exam was done which patient did have yellowish discharge in the vaginal vault no erythema or lesions. Patient was nontender on bimanual with no cervical motion tenderness. Discussed test results with patient she was positive for trichomoniasis and UA was positive for nitrates with small leuks and Micro showing 5-10 WBCs. Discussed plans for prescription for Flagyl and Keflex. Offered prophylactic treatment while GC and chlamydia results were pending with Rocephin and azithromycin and patient is not wanting those treatments at this time. Patient is agreeable with discharge with prescriptions for Flagyl for Trichomonas and probable BV and Keflex for UTI. Will provide clinic and physician referral information with discharge paperwork and advised patient on need for follow-up to assure infection completely treated. Safe sex discussion was had patient advised on condom use or abstinence until infection clear. Patient remaining nontoxic in appearance and was in no visible distress during discharge discussion. Education provided on signs and symptoms to return to ER for. Patient advised on use of [id number] Tylenol and/or ibuprofen as needed. Neg. UCG. Staff Physician Addendum: I was working in the ER during the course of this patient's visit. I was available for consultation as needed, but I was not directly involved in the care of this patient. Dragon Disclaimer Dragon Disclaimer This electronic medical record was generated, in whole or in part, using a voice recognition dictation system. Departure Departure Impression: Primary Impression: Bacterial vaginosis Additional Impressions: UTI (urinary tract infection) Trichomonal vaginitis Disposition: HOME, SELF-CARE Condition: STABLE Referrals: NO PCP (PCP) Patient Instructions: Bacterial Vaginosis, Trichomoniasis, Urinary Tract Infection Additional Instructions: Avoid sexual intercourse until all antibiotic prescription completely finished and you have recheck to ensure infection is completely treated. If you decide to have sexual intercourse use condoms to prevent infection spread. Your cultures are pending and results should be back in 2-3 days follow-up on those results. Tylenol and/or ibuprofen as needed for pain as directed on container. Scripts Cephalexin (KEFLEX) 500 Mg Capsule 1 CAP PO BID, #10 CAP 0 Refills Prov: DIANA DEE APRN 07/02/18 Metronidazole (FLAGYL) 500 Mg Tablet 1 TAB PO BID, #14 TAB 0 Refills Alcohol intake while taking this medication and for 3 days following completion of prescription Prov: DIANA DEE APRN 07/02/18 Problem Qualifiers DIANA DEE APRN Jul 02, 2018 17:17 WARNER BENDER MD Jul 05, 2018 00:07
[2018-07-02 17:27] LABS: BILIRUBIN,URINE NEGATIVE (NEG); CLARITY,URINE CLOUDY; COLOR,URINE YELLOW; NITRITE,URINE POSITIVE (NEG); PROTEIN,URINE NEGATIVE (NEG-TRACE); UROBILINOGEN,URINE 0.2 mg/dL (0.2 mg/dL)
[2018-07-02 17:35] LABS: BACTERIA,URINE MANY /HPF (0-FEW); RBC,URINE OCC /HPF (0-2); SQUAMOUS EPITHELIAL CELL,UR MANY /LPF
[2018-07-02] MEDS ORDERED: METR500T PO (17:43)
[2018-07-02] MEDS ORDERED: CEPH-264 PO (18:05)
[2018-07-02 19:28] LABS: U PREG PATIENT NEGATIVE (NEG)
[2018-07-03 14:32] LABS: GC PROBE Negative (Negative)
== END 2018-07-02 18:50 | disposition home or self-care (01) ==
LOC: ER 15:08
DX: A59.01 Trichomonal vulvovaginitis (principal); N76.0 Acute vaginitis; B96.89 Other specified bacterial agents as the cause of diseases classified elsewhere; N39.0 Urinary tract infection, site not specified; G89.29 Other chronic pain; Z91.041 Radiographic dye allergy status
CPT/HCPCS: 81001; 81025; 87086; 87491; 87591; 99283; Q0111

== ENCOUNTER 2019-06-06 08:40 | Emergency (ER) | payer MEDICAID ==
[~2019-06-06] VITALS: Ht 160 cm; Wt 79.4 kg
[~2019-06-06 08:40] MED LIST changes: +CEPH-264 PO; +METR-34 PO; -METR-84 PO; +PRED50TA PO
[2019-06-06] MEDS ORDERED: IV NORMAL SALINE 1000ML BAG 1,000 ML IV SCH (09:04)
[2019-06-06] MEDS ORDERED: ONDANSETRON PF 4 MG/2 ML VIAL. IV ONE (09:15)
[2019-06-06 09:25] LABS: BASO # 0.1 x10^3/uL (0.0-0.2); BASO % 1 % (0-3); EOS # 0.1 x10^3/uL (0.0-0.7); EOS % 1 % (0-3); HEMATOCRIT 39.7 % (36.0-47.0); HEMOGLOBIN 13.5 g/dL (12.0-15.5); LYMPH % 24 % (24-48); MEAN CORPUSCULAR HEMOGLOBIN 30 pg (25-35); MEAN CORPUSCULAR HGB CONC 34 g/dL (31-37); MEAN CORPUSCULAR VOLUME 88 fL (79-100); MONO # 0.6 x10^3/uL (0.0-1.1); MONO % 7 % (0-9); NEUT # 5.7 x10^3/uL (1.8-7.7); NEUT % 68 % (31-73); PLATELET COUNT 245 x10^3/uL (140-400); RED BLOOD COUNT 4.54 x10^6/uL (3.50-5.40); RED CELL DISTRIBUTION WIDTH 13.9 % (11.5-14.5); WHITE BLOOD COUNT 8.4 x10^3/uL (4.0-11.0)
[2019-06-06 09:26] LABS: BILIRUBIN,URINE NEGATIVE (NEG); CLARITY,URINE CLEAR; COLOR,URINE AMBER; NITRITE,URINE NEGATIVE (NEG); PROTEIN,URINE NEGATIVE (NEG-TRACE)
[2019-06-06 09:28] LABS: CALCIUM 8.6 mg/dL (8.5-10.1); CREATININE 0.7 mg/dL (0.6-1.0); GFR 120.6; POTASSIUM 3.9 mmol/L (3.5-5.1)
[2019-06-06 09:34] LABS: ALBUMIN 3.9 g/dL (3.4-5.0); TOTAL BILIRUBIN 0.5 mg/dL (0.2-1.0); TOTAL PROTEIN 7.8 g/dL (6.4-8.2)
[2019-06-06 09:38] LABS: BACTERIA,URINE FEW /HPF (0-FEW); SQUAMOUS EPITHELIAL CELL,UR MANY /LPF
[2019-06-06] MEDS ORDERED: ONDA4TAB12 PO (10:47)
--- NOTE | 2019-06-06 10:47 | PHYS DOC ---
Past Medical History Past Medical History: No Pertinent History, Depression Additional Past Medical Histor: chronic back and hip pain Past Surgical History: , Other Additional Past Surgical Histo: R)ovarian cyst removal, HERNIA REPAIR Alcohol Use: Rarely Drug Use: None Adult General Chief Complaint Chief Complaint: ABDOMINAL PAIN HPI HPI Patient is a 28-year-old female who presents with complaint of nausea and vomiting that started yesterday. Patient states that she had eaten a chicken sandwich and that evening after eating the chicken sandwich, she developed n ausea and vomiting. She is wondering if she may have gotten food poisoning. She denies any diarrhea but states that she feels like she's got some rumbling in her abdomen and wonders if she may be developing diarrhea in the near future.[] Review of Systems Review of Systems Constitutional: Denies fever or chills [] Respiratory: Denies cough or shortness of breath [] Cardiovascular: No additional information not addressed in HPI [] GI: Denies abdominal pain. Complains of nausea and vomiting without diarrhea [] Integument: Denies rash or skin lesions [] Neurologic: Denies headache, focal weakness or sensory changes [] All other systems were reviewed and found to be within normal limits, except as documented in this note. Current Medications Current Medications Current Medications Medications (Trade) Dose Ordered Sig/Jordi Start Time Stop Time Status Last Admin Dose Admin Ondansetron HCl (Zofran) 4 mg 1X ONCE 06/06/19 09:15 06/06/19 09:16 DC 06/06/19 09:18 4 MG Sodium Chloride 1,000 ml @ 1,000 mls/hr Q1H 06/06/19 09:04 06/06/19 10:03 DC 06/06/19 09:18 1,000 MLS/HR Allergies Allergies Allergies Coded Allergies Type Severity Reaction Last Updated Verified Iodinated Contrast Media Allergy Intermediate burn & itch 07/20/15 Yes Physical Exam Physical Exam Constitutional: Well developed, well nourished, no acute distress, non-toxic appearance. [] HENT: Normocephalic, atraumatic, bilateral external ears normal, oropharynx moist, no oral exudates, nose normal. [] Eyes: PERRLA, EOMI, conjunctiva normal, no discharge. [] Neck: Normal range of motion, no tenderness, supple. [] Cardiovascular: Regular rate and rhythm[] Lungs & Thorax: Bilateral breath sounds clear to auscultation [] Abdomen: Bowel sounds normal, soft, no tenderness. [] Skin: Warm, dry, no erythema, no rash. [] Extremities: No tenderness, no cyanosis, no clubbing, ROM intact, no edema. [] Neurologic: Alert and oriented X 3, normal motor function, normal sensory function, no focal deficits noted. [] Current Patient Data Vital Signs Vital Signs Date Time Temp Pulse Resp B/P (MAP) Pulse Ox O2 Delivery O2 Flow Rate FiO2 06/06/19 08:55 98.5 82 18 132/77 (95) 96 Room Air 98.5 Lab Values Laboratory Tests Test 06/06/19 08:45 06/06/19 08:51 06/06/19 09:11 Urine Collection Type Void Urine Color [place] Urine Clarity Clear Urine pH 7.0 Urine Specific [place] >=1.030 Urine Protein Negative mg/dL (NEG-TRACE) Urine Glucose (UA) Negative mg/dL (NEG) Urine Ketones (Stick) Negative mg/dL (NEG) Urine Blood Negative (NEG) Urine Nitrite Negative (NEG) Urine Bilirubin Negative (NEG) Urine Urobilinogen Dipstick 1.0 mg/dL (0.2 mg/dL) Urine Leukocyte Esterase Small (NEG) Urine RBC 3-5 /HPF (0-2) Urine WBC 1-4 /HPF (0-4) Urine Squamous Epithelial Cells Many /LPF Urine Bacteria Few /HPF (0-FEW) Urine Mucus Marked /LPF POC Urine HCG, Qualitative Hcg negative (Negative) White Blood Count 8.4 x10^3/uL (4.0-11.0) Red Blood Count 4.54 x10^6/uL (3.50-5.40) Hemoglobin 13.5 g/dL (12.0-15.5) Hematocrit 39.7 % (36.0-47.0) Mean Corpuscular Volume 88 fL (79-100) Mean Corpuscular Hemoglobin 30 pg (25-35) Mean Corpuscular Hemoglobin Concent 34 g/dL (31-37) Red Cell Distribution Width 13.9 % (11.5-14.5) Platelet Count 245 x10^3/uL (140-400) Neutrophils (%) (Auto) 68 % (31-73) Lymphocytes (%) (Auto) 24 % (24-48) Monocytes (%) (Auto) 7 % (0-9) Eosinophils (%) (Auto) 1 % (0-3) Basophils (%) (Auto) 1 % (0-3) Neutrophils # (Auto) 5.7 x10^3/uL (1.8-7.7) Lymphocytes # (Auto) 2.0 x10^3/uL (1.0-4.8) Monocytes # (Auto) 0.6 x10^3/uL (0.0-1.1) Eosinophils # (Auto) 0.1 x10^3/uL (0.0-0.7) Basophils # (Auto) 0.1 x10^3/uL (0.0-0.2) Sodium Level 137 mmol/L (136-145) Potassium Level 3.9 mmol/L (3.5-5.1) Chloride Level 102 mmol/L (98-107) Carbon Dioxide Level 27 mmol/L (21-32) Anion Gap 8 (6-14) Blood Urea Nitrogen 10 mg/dL (7-20) Creatinine 0.7 mg/dL (0.6-1.0) Estimated GFR (Cockcroft-Gault) 120.6 BUN/Creatinine Ratio 14 (6-20) Glucose Level 96 mg/dL (70-99) Calcium Level 8.6 mg/dL (8.5-10.1) Total Bilirubin 0.5 mg/dL (0.2-1.0) Aspartate Amino Transferase (AST) 11 U/L (15-37) L Alanine Aminotransferase (ALT) 8 U/L (14-59) L Alkaline Phosphatase 71 U/L (46-116) Total Protein 7.8 g/dL (6.4-8.2) Albumin 3.9 g/dL (3.4-5.0) Albumin/Globulin Ratio 1.0 (1.0-1.7) Lipase 48 U/L (73-393) L Laboratory Tests 06/06/19 09:11 Laboratory Tests 06/06/19 09:11 EKG EKG [] Radiology/Procedures Radiology/Procedures [] Course & Med Decision Making Course & Med Decision Making Pertinent Labs and Imaging studies reviewed. (See chart for details) [] Dragon Disclaimer Dragon Disclaimer This electronic medical record was generated, in whole or in part, using a voice recognition dictation system. Departure Departure Impression: Primary Impression: Nausea and vomiting Additional Impression: Dehydration Disposition: 01 HOME, SELF-CARE Condition: STABLE Referrals: NO PCP (PCP) Patient Instructions: Dehydration, Adult, Nausea and Vomiting Scripts Ondansetron (ONDANSETRON ODT) 4 Mg Tab.rapdis 1 TAB PO PRN Q6-8HRS PRN for NAUSEA, #15 TAB Prov: LON CORONA Jr. DO 06/06/19 Problem Qualifiers Primary Impression: Nausea and vomiting Vomiting type: unspecified Vomiting Intractability: non-intractable Qualified Codes: R11.2 - Nausea with vomiting, unspecified LON CORONA Jr., DO Jun 06, 2019 10:47
[2019-06-06 10:50] VITALS: BP 105/56
== END 2019-06-06 10:55 | disposition home or self-care (01) ==
LOC: ER 08:40
DX: E86.0 Dehydration (principal); R11.2 Nausea with vomiting, unspecified; F32.9 Major depressive disorder, single episode, unspecified; Z98.890 Other specified postprocedural states; Z91.041 Radiographic dye allergy status
CPT/HCPCS: 36415; 80053; 81001; 81025; 83690; 85025; 87086; 96361; 96374; 99285; J2405; J7030

== ENCOUNTER 2019-12-02 13:42 | Emergency (ER) | payer MEDICAID ==
[~2019-12-02] VITALS: Ht 162.6 cm; Wt 72.7 kg
[~2019-12-02 13:42] MED LIST changes: +ONDA4TAB12 PO
[2019-12-02] MEDS ORDERED: ONDANSETRON PF 4 MG/2 ML VIAL. IV ONE (14:00)
[2019-12-02] MEDS ORDERED: IV NORMAL SALINE 1000ML BAG 1,000 ML IV ONE (14:00)
[2019-12-02 14:08] LABS: BILIRUBIN,URINE NEGATIVE (NEG); CLARITY,URINE CLEAR; COLOR,URINE YELLOW; NITRITE,URINE NEGATIVE (NEG); PH,URINE 6.5 (<5.0-8.0); PROTEIN,URINE NEGATIVE (NEG-TRACE); UROBILINOGEN,URINE 0.2 mg/dL (0.2 mg/dL)
[2019-12-02 14:09] LABS: BASO # 0.1 x10^3/uL (0.0-0.2); BASO % 1 % (0-3); EOS # 0.1 x10^3/uL (0.0-0.7); EOS % 1 % (0-3); HEMATOCRIT 39.4 % (36.0-47.0); HEMOGLOBIN 13.8 g/dL (12.0-15.5); LYMPH # 2.1 x10^3/uL (1.0-4.8); LYMPH % 23 % (24-48); MEAN CORPUSCULAR HEMOGLOBIN 32 pg (25-35); MEAN CORPUSCULAR HGB CONC 35 g/dL (31-37); MEAN CORPUSCULAR VOLUME 90 fL (79-100); MONO # 0.5 x10^3/uL (0.0-1.1); MONO % 5 % (0-9); NEUT # 6.4 x10^3/uL (1.8-7.7); NEUT % 70 % (31-73); PLATELET COUNT 266 x10^3/uL (140-400); RED BLOOD COUNT 4.39 x10^6/uL (3.50-5.40); RED CELL DISTRIBUTION WIDTH 13.7 % (11.5-14.5); WHITE BLOOD COUNT 9.2 x10^3/uL (4.0-11.0)
[2019-12-02 14:15] LABS: BACTERIA,URINE FEW /HPF (0-FEW); RBC,URINE 0 /HPF (0-2); SQUAMOUS EPITHELIAL CELL,UR MOD /LPF; WBC,URINE OCC /HPF (0-4)
--- NOTE | 2019-12-02 14:16 | PHYS DOC ---
Past Medical History Past Medical History: Depression Additional Past Medical Histor: chronic back and hip pain Past Surgical History: , Tubal ligation, Other Additional Past Surgical Histo: R)ovarian cyst removal, HERNIA REPAIR Smoking Status: Never Smoker Alcohol Use: Occasionally Drug Use: None General Adult EDM: Chief Complaint: NAUSEA/VOMITING/DIARRHA HPI: HPI: Patient is a 29 year old AA female who presents to the emergency department with complaints of intermittent diarrhea for the last week. Patient states she has had 2 episodes of diarrhea today. She denies any blood in her stools, vomiting, abdominal pain, back pain, dysuria, hematuria, cough, shortness of breath, chest pain, palpitations, or weakness. Patient states that she has felt more tired than usual lately and currently reports nausea. She denies any recent travel or known exposure to COVID-19. 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 She denies any recent travel or antibiotic use. She currently denies any pain. Review of Systems: Review of Systems: Constitutional: Denies fever or chills; see HPI. [] Eyes: Denies change in visual acuity. [] HENT: Denies nasal congestion or sore throat. [] Respiratory: Denies cough or shortness of breath. [] Cardiovascular: Denies chest pain or edema. [] GI: See HPI : Denies dysuria. [] Musculoskeletal: Denies back pain or joint pain. [] Integument: Denies rash. [] Neurologic: Denies headache, focal weakness or sensory changes. [] Lymphatic: Denies swollen glands. [] Psychiatric: Denies depression or anxiety. [] Heart Score: Risk Factors: Risk Factors: DM, Current or recent (<one month) smoker, HTN, HLP, family history of CAD, obesity. Risk Scores: Score 0 - 3: 2.5% MACE over next 6 weeks - Discharge Home Score 4 - 6: 20.3% MACE over next 6 weeks - Admit for Clinical Observation Score 7 - 10: 72.7% MACE over next 6 weeks - Early Invasive Strategies Current Medications: Current Medications Medications (Trade) Dose Ordered Sig/Jordi Start Time Stop Time Status Last Admin Dose Admin Ondansetron HCl (Zofran) 4 mg 1X ONCE 12/02/19 14:00 12/02/19 14:01 DC Sodium Chloride 1,000 ml @ 1,000 mls/hr 1X ONCE 12/02/19 14:00 12/02/19 14:59 Allergies: Allergies: Allergies Coded Allergies Type Severity Reaction Last Updated Verified Iodinated Contrast Media Allergy Intermediate burn & itch 07/20/15 Yes Physical Exam: PE: Constitutional: Well developed, well nourished, no acute distress, non-toxic appearance. [] HENT: Normocephalic, atraumatic, bilateral external ears normal, oropharynx moist, no oral exudates, nose normal. [] Eyes: PERRLA, EOMI, conjunctiva normal, no discharge. [] Neck: Normal range of motion, no stridor. [] Cardiovascular:Heart rate regular rhythm, no murmur [] Lungs & Thorax: Bilateral breath sounds clear to auscultation; Respirations even and unlabored, no retractions, no respiratory distress[] Abdomen: Bowel sounds normal, soft, nontender, no rebound tenderness, no guarding, no masses, no pulsatile masses. [] Skin: Warm, dry, no erythema, no rash. [] Extremities: No tenderness, no cyanosis, no clubbing, ROM intact, no edema. [] Neurologic: Alert and oriented X 3, no focal deficits noted. [] Psychologic: Affect normal, judgement normal, mood normal. [] Current Patient Data: Labs: Laboratory Tests Test 12/02/19 13:55 12/02/19 13:57 White Blood Count 9.2 x10^3/uL (4.0-11.0) Red Blood Count 4.39 x10^6/uL (3.50-5.40) Hemoglobin 13.8 g/dL (12.0-15.5) Hematocrit 39.4 % (36.0-47.0) Mean Corpuscular Volume 90 fL (79-100) Mean Corpuscular Hemoglobin 32 pg (25-35) Mean Corpuscular Hemoglobin Concent 35 g/dL (31-37) Red Cell Distribution Width 13.7 % (11.5-14.5) Platelet Count 266 x10^3/uL (140-400) Neutrophils (%) (Auto) 70 % (31-73) Lymphocytes (%) (Auto) 23 % (24-48) L Monocytes (%) (Auto) 5 % (0-9) Eosinophils (%) (Auto) 1 % (0-3) Basophils (%) (Auto) 1 % (0-3) Neutrophils # (Auto) 6.4 x10^3/uL (1.8-7.7) Lymphocytes # (Auto) 2.1 x10^3/uL (1.0-4.8) Monocytes # (Auto) 0.5 x10^3/uL (0.0-1.1) Eosinophils # (Auto) 0.1 x10^3/uL (0.0-0.7) Basophils # (Auto) 0.1 x10^3/uL (0.0-0.2) POC Urine HCG, Qualitative Hcg negative (Negative) Laboratory Tests 12/02/19 13:55 Vital Signs: Vital Signs Date Time Temp Pulse Resp B/P (MAP) Pulse Ox O2 Delivery O2 Flow Rate FiO2 12/02/19 13:50 98.7 75 20 127/73 (91) 100 Room Air 98.7 EKG: EKG: [] Radiology/Procedures: Radiology/Procedures: [] Course & Med Decision Making: Course & Med Decision Making Pertinent Labs and Imaging studies reviewed. (See chart for details) Patient is a 29-year-old female presented to the emergency room with complaints of intermittent diarrhea for the last week. CBC and CMP were unremarkable, UA was also unremarkable. Patient was given a liter of normal saline and 4 mg of Zofran. She reported decreased nausea and feeling better after these medications were given. Prescription written for Zofran. Patient encouraged to follow a clear liquid diet for 24 hours and advance diet as tolerated starting with bland foods. Patient encouraged to follow-up with her primary care doctor if symptoms persist, return to the ER symptoms worsen. Patient verbalized an understanding of home care, medications, follow-up, and return to ED instructions and was in agreement with the plan of care. [] Dragon Disclaimer: Dragon Disclaimer: This electronic medical record was generated, in whole or in part, using a voice recognition dictation system. Departure Departure Impression: Primary Impression: Diarrhea Qualified Codes: R19.7 - Diarrhea, unspecified Additional Impression: Nausea Disposition: HOME, SELF-CARE Condition: STABLE Referrals: NO PCP (PCP) Patient Instructions: Diarrhea, [id number], Diet for Diarrhea, Adult, Nausea and Vomiting, [id number] Additional Instructions: Fill prescriptions and use them as directed. Recommend clear fluids for the next 24 hours. Then you may advance to bland foods such as bananas, rice, applesauce, and dry toast. Follow-up with your primary care doctor in the next 1-2 days. Return to the emergency room if your symptoms worsen. Scripts Ondansetron (ONDANSETRON ODT) 4 Mg Tab.rapdis 1 TAB PO PRN Q6-8HRS PRN for NAUSEA/VOMITING for 3 Days, #12 TAB 0 Refills Prov: JOSE MANUEL MARCANO BIOPHYSICS SCIENTIST 12/02/19 Justicifation of Admission Dx: Justifications for Admission: Justification of Admission Dx: JOSE MANUEL Tran BIOPHYSICS SCIENTIST Dec 02, 2019 14:16
[2019-12-02 14:22] LABS: CALCIUM 8.9 mg/dL (8.5-10.1); CREATININE 0.7 mg/dL (0.6-1.0); GFR 119.7; POTASSIUM 3.5 mmol/L (3.5-5.1)
[2019-12-02 14:28] LABS: ALBUMIN 4.1 g/dL (3.4-5.0); ALBUMIN/GLOBULIN RATIO 1.1 (1.0-1.7); MAGNESIUM 1.7 mg/dL (1.8-2.4); TOTAL BILIRUBIN 0.4 mg/dL (0.2-1.0); TOTAL PROTEIN 7.7 g/dL (6.4-8.2)
[2019-12-02] MEDS ORDERED: ONDA4TAB12 PO (15:55)
[2019-12-02 16:00] VITALS: BP 124/76
== END 2019-12-02 16:18 | disposition home or self-care (01) ==
LOC: ER 13:42
DX: R19.7 Diarrhea, unspecified (principal); R11.0 Nausea; G89.29 Other chronic pain; Z98.51 Tubal ligation status; Z91.041 Radiographic dye allergy status
CPT/HCPCS: 36415; 80053; 81001; 81025; 83690; 83735; 85025; 87086; 96361; 96374; 99285; J2405; J7030

== ENCOUNTER 2021-03-23 14:23 | Emergency (ER) | payer MEDICAID ==
[~2021-03-23] VITALS: Ht 162.6 cm; Wt 70.9 kg
[~2021-03-23 14:23] MED LIST changes: -CIPR500T PO; +CIPR500T2 PO
[2021-03-23 15:15] VITALS: BP 121/68
[2021-03-23 15:35] LABS: BILIRUBIN,URINE NEGATIVE (NEG); CLARITY,URINE CLEAR; COLOR,URINE YELLOW; NITRITE,URINE NEGATIVE (NEG); PROTEIN,URINE NEGATIVE (NEG-TRACE)
[2021-03-23 15:43] LABS: BACTERIA,URINE 0 /HPF (0-FEW); RBC,URINE OCC /HPF (0-2); WBC,URINE OCC /HPF (0-4)
[2021-03-23] MEDS ORDERED: METR500T PO (18:16)
--- NOTE | 2021-03-23 18:17 | PHYS DOC ---
Past Medical History Past Medical History: Depression Additional Past Medical Histor: chronic back and hip pain Past Surgical History: , Tubal ligation, Other Additional Past Surgical Histo: R)ovarian cyst removal, HERNIA REPAIR Smoking Status: Never Smoker Alcohol Use: Occasionally Drug Use: None General Adult EDM: Chief Complaint: VAGINAL PROBLEM HPI: HPI: 30-year-old female with no significant past medical history presents the ED with complaints of vaginal irritation and malodorous discharge described as "it smells off and my physician told me, me my partners' pH don't mix." Patient states symptoms resemble prior history of bacterial vaginosis. Last menstrual period was the February. Symptoms have been present for the past 2 days. No history of STIs. Is been with one male partner for the past 6 years. Male partner has no symptoms. Patient takes no routine medications. No known drug allergies. Reports one episode of unprotected sex due to alcoholic intoxication, normally uses condoms. Review of Systems: Review of Systems: Constitutional: Denies fever or chills. [] Eyes: Denies change in visual acuity. [] HENT: Denies nasal congestion or sore throat. [] Respiratory: Denies cough or shortness of breath. [] Cardiovascular: Denies chest pain or edema. [] GI: Denies nausea or vomiting : Denies dysuria, hematuria or vaginal bleeding Musculoskeletal: Denies back pain or flank pain Integument: Denies rash or diaphoresis Neurologic: Denies headache, focal weakness or sensory changes. [] Endocrine: Denies polyuria or polydipsia. [] Lymphatic: Denies swollen glands. [] Psychiatric: Denies depression or anxiety. [] Heart Score: C/O Chest Pain: No Risk Factors: Risk Factors: DM, Current or recent (<one month) smoker, HTN, HLP, family history of CAD, obesity. Risk Scores: Score 0 - 3: 2.5% MACE over next 6 weeks - Discharge Home Score 4 - 6: 20.3% MACE over next 6 weeks - Admit for Clinical Observation Score 7 - 10: 72.7% MACE over next 6 weeks - Early Invasive Strategies Allergies: Allergies: Allergies Coded Allergies Type Severity Reaction Last Updated Verified Iodinated Contrast Media Allergy Intermediate burn & itch 07/20/15 Yes Physical Exam: PE: Constitutional: Well developed, well nourished, no acute distress, non-toxic appearance. HENT: Normocephalic, atraumatic, Eyes: EOMI, conjunctiva normal, no discharge. Neck: Normal range of motion, supple, Cardiovascular: S1/2 present, regular rhythm Lungs & Thorax: Speaking in full sentences, bilateral equal chest rise, no tachypnea or increased work of breathing Abdomen: soft, no tenderness, Skin: Warm, dry, no erythema, no rash. [] Back: No tenderness, no CVA tenderness. [] Extremities: No tenderness, no cyanosis, no lower extremity edema Neurologic: Alert and oriented X 3, normal motor function, normal sensory function, no focal deficits noted. [] Psychologic: Affect normal, judgement normal, mood normal. [] Pelvic exam- patient declines stating, "I think that's too much" Current Patient Data: Labs: Laboratory Tests Test 03/23/21 15:01 03/23/21 15:14 Urine Collection Type Unknown Urine Color Yellow Urine Clarity Clear Urine pH 8.0 (<5.0-8.0) Urine Specific [place] 1.015 (1.000-1.030) Urine Protein Negative mg/dL (NEG-TRACE) Urine Glucose (UA) Negative mg/dL (NEG) Urine Ketones (Stick) Negative mg/dL (NEG) Urine Blood Negative (NEG) Urine Nitrite Negative (NEG) Urine Bilirubin Negative (NEG) Urine Urobilinogen Dipstick 1.0 mg/dL (0.2 mg/dL) Urine Leukocyte Esterase Negative (NEG) Urine RBC Occ /HPF (0-2) Urine WBC Occ /HPF (0-4) Urine Squamous Epithelial Cells Mod /LPF Urine Bacteria 0 /HPF (0-FEW) POC Urine HCG, Qualitative Hcg negative (Negative) Microbiology 03/23/21 Wet Prep - Final, Complete Vital Signs: Vital Signs Date Time Temp Pulse Resp B/P (MAP) Pulse Ox O2 Delivery O2 Flow Rate FiO2 03/23/21 15:15 98.0 68 18 121/68 (85) 100 Room Air 98.0 EKG: EKG: [] Radiology/Procedures: Radiology/Procedures: [] Course & Med Decision Making: Course & Med Decision Making Pertinent Labs and Imaging studies reviewed. (See chart for details) Concern for increased, thin, white malodorous discharge, concerning for bacterial vaginosis. Wet prep did not show any clue cells. Urinalysis with no infection. I offered prophylactic antibiotics for GC, patient prefers to wait for callback. Will prescribe Flagyl and recommend yogurt with lactobacillus. Will discharge home with strict ED return precautions were given for fever, flulike symptoms, flank pain or intractable nausea or vomiting. Encouraged urgent outpatient follow-up with PMD and SURGERY TECHNICIAN. Life-threatening processes were considered but are low suspicion at this time, given history, physical exam and ED workup. Pt was educated on all prescription medications and adverse effects. All patient's questions were answered and pt was stable at time of discharge. Life/limb-threatening differential includes but is not limited to, pelvic inflammatory disease, complications or a sending infections including pyelonephritis. I have spoken with the patient and/or caregivers. I explained the patient's condition, diagnoses and treatment plan based on the information available to me at this time. I have answered the patient and/or caregiver's questions and addressed any concerns. The patient and/or caregivers have a good understanding of patient's diagnosis, condition and treatment plan as can be expected at this point. Vital signs have been stable. Patient's condition is stable and appropriate for discharge from the emergency department. Patient will pursue further outpatient evaluation with primary care physician or other designated or consulting physician as outlined in the discharge instructions. The patient and/or caregivers are agreeable to this plan of care and follow-up instructions have been explained in detail. The patient and/or caregivers have received these instructions in written form and have expressed an understanding of the discharge instructions. The patient and/or caregivers are aware that any significant change of condition or worsening of symptoms should prompt immediate return to this or the closest emergency department or call to 911. Raina Disclaimer: Raina Disclaimer: This electronic medical record was generated, in whole or in part, using a voice recognition dictation system. Departure Departure Impression: Primary Impression: Vaginal irritation Additional Impression: Vaginal discharge Disposition: HOME / SELF CARE / HOMELESS Condition: STABLE Referrals: NO PCP (PCP) Follow-up with your primary care physician in 24 to 48 hours OR FOLLOW UP WITH FAMILY MEDICINE: [address] [place] [address] Patient Instructions: Bacterial Vaginosis Additional Instructions: FOLLOW UP WITH SURGERY TECHNICIAN: FOR DEFINITIVE MANAGEMENT [facility] [address] [place] [address] EMERGENCY DEPARTMENT GENERAL DISCHARGE INSTRUCTIONS Thank you for coming to [facility] Emergency Department (ED) today and trusting us with you care. We trust that you had a positive experience in our Emergency Department. If you wish to speak to the department management, you may call the Director at [phone]. YOUR FOLLOW UP INSTRUCTIONS ARE FOLLOWS: 1. Do you have a private Doctor? If you do not have a private doctor, please ask for a resource list of physicians or clinics that may be able to assist you with follow up care. 2. The Emergency Physicain has interpreted your x-rays. The X-Ray specialist will also review them. If there is a change in the findings, you will be notified in 48 hours when at all possible. 3. A lab test or culture has been done, your results will be reviewed and you will be notified if you need a change in treatment. ADDITIONAL INSTRUCTIONS AND INFORMATION: 1. Your care today has been supervised by a physician who is specially trained in emergency care. Many problems require more than one evaluation for a complete diagnosis and treatment. We recommend that you schedule your follow up appointment as recommended to ensure complete treatment of you illness or injury. If you are unable to obtain follow up care and continue to have a problem, or if your condition worsens, we recommend that you return to the ED. 2. We are not able to safely determine your condition over the phone nor are we able to give sound medical advice over the phone. For these safety reasons, if you call for medical advice we will ask you to come to the ED for further evaluation. 3. If you have any questions regarding these discharge instructions please call the ED at [phone]. SAFETY INFORMATION: In the interest of safety, wellness, and injury prevention; we encourage you to wear your sealbelt, if you smoke; quite smoking, and we encourage family to use a protective helmet for bicycling and other sporting events that present an increased risk for head injury. IF YOUR SYMPTOMS WORSEN OR NEW SYMPTOMS DEVELOP, OR YOU HAVE CONCERNS ABOUT YOUR CONDITION; OR IF YOUR CONDITION WORSENS WHILE YOU ARE WAITING FOR YOUR FOLLOW UP APPOINTMENT; EITHER CONTACT YOUR PRIMARY CARE DOCTOR, THE PHYSICIAN WHOSE NAME AND NUMBER YOU WERE GIVEN, OR RETURN TO THE ED IMMEDIATELY. Scripts Metronidazole (FLAGYL) 500 Mg Tablet 1 TAB PO BID for 7 Days, #14 TAB Prov: DIANA DIEHL DO 03/23/21 DIANA DIEHL DO Mar 23, 2021 18:17
[2021-03-24 18:12] LABS: GC PROBE Negative (Negative)
== END 2021-03-23 18:20 | disposition home or self-care (01) ==
LOC: ER 14:23
DX: N89.8 Other specified noninflammatory disorders of vagina (principal); Z98.61 Coronary angioplasty status; Z91.041 Radiographic dye allergy status
CPT/HCPCS: 81001; 81025; 87491; 87591; 99283; Q0111

== ENCOUNTER 2021-04-04 13:55 | Emergency (ER) | payer MEDICAID ==
[~2021-04-04] VITALS: Ht 162.6 cm; Wt 72.7 kg
[2021-04-04 14:29] VITALS: BP 129/60
[2021-04-04 14:34] LABS: BILIRUBIN,URINE NEGATIVE (NEG); CLARITY,URINE CLOUDY; COLOR,URINE YELLOW; NITRITE,URINE NEGATIVE (NEG); PROTEIN,URINE 30 mg/dL (NEG-TRACE)
[2021-04-04 14:49] LABS: BACTERIA,URINE FEW /HPF (0-FEW); RBC,URINE TNTC /HPF (0-2); WBC,URINE >40 /HPF (0-4)
[2021-04-04] MEDS ORDERED: CEPH500C PO (14:55)
--- NOTE | 2021-04-04 14:58 | PHYS DOC ---
Past Medical History Past Medical History: Depression Additional Past Medical Histor: chronic back and hip pain ([facility],LILIANE Carmen SQL PROGRAMMER) Past Surgical History: , Tubal ligation, Other Additional Past Surgical Histo: R)ovarian cyst removal, HERNIA REPAIR [facility] M SQL PROGRAMMER) Smoking Status: Never Smoker Alcohol Use: Occasionally Drug Use: None ([facility] SQL PROGRAMMER) General Adult EDM: Chief Complaint: PAIN ON URINATION HPI: HPI: Patient is a 30 year old female who presents with burning with urination frequency since this morning. She just started her menstrual cycle this morning also. She denies fever, nausea, vomiting, abdominal pain except when urinating, back pain, headache, dizziness, chest pain, shortness of air, body aches. She has a history of depression, , tubal ligation, right ovarian cyst removal, hernia repair. Rates her discomfort at a 4 out of 10 mainly with urination. ([facility] SQL PROGRAMMER) Review of Systems: Review of Systems: Constitutional: Denies fever or chills. [] Eyes: Denies change in visual acuity. [] HENT: Denies nasal congestion or sore throat. [] Respiratory: Denies cough or shortness of breath. [] Cardiovascular: Denies chest pain or edema. [] GI: +Low mid abdominal pain with urination, denies nausea, vomiting, bloody stools or diarrhea. [] : + dysuria. [] Musculoskeletal: Denies back pain or joint pain. [] Integument: Denies rash. [] Neurologic: Denies headache, focal weakness or sensory changes. [] Endocrine: Denies polyuria or polydipsia. [] Lymphatic: Denies swollen glands. [] Psychiatric: Denies depression or anxiety. [] ([facility],LILIANE M SQL PROGRAMMER) Heart Score: C/O Chest Pain: No [facility] Allergies: Allergies: Allergies Coded Allergies Type Severity Reaction Last Updated Verified Iodinated Contrast Media Allergy Intermediate burn & itch 07/20/15 Yes (LILIANE RAMIREZ SQL PROGRAMMER) Physical Exam: PE: Constitutional: Well developed, well nourished, no acute distress, non-toxic appearance. [] HENT: Normocephalic, atraumatic, bilateral external ears normal, oropharynx moist, no oral exudates, nose normal. [] Eyes: PERRLA, EOMI, conjunctiva normal, no discharge. [] Neck: Normal range of motion, no tenderness, supple, no stridor. [] Cardiovascular:Heart rate regular rhythm, no murmur [] Lungs & Thorax: Bilateral breath sounds clear to auscultation [] Abdomen: Bowel sounds normal, soft, no tenderness, no masses, no pulsatile masses. [] Skin: Warm, dry, no erythema, no rash. [] Back: No tenderness, no CVA tenderness. [] Extremities: No tenderness, no cyanosis, no clubbing, ROM intact, no edema. [] Neurologic: Alert and oriented X 3, normal motor function, normal sensory function, no focal deficits noted. [] Psychologic: Affect normal, judgement normal, mood normal. [] Normal physical exam (LILIANE RAMIREZ APRN) Current Patient Data: Labs: Laboratory Tests Test 04/04/21 14:20 Urine Collection Type Unknown Urine Color Yellow Urine Clarity Cloudy Urine pH 6.0 (<5.0-8.0) Urine Specific [place] 1.020 (1.000-1.030) Urine Protein 30 mg/dL (NEG-TRACE) Urine Glucose (UA) Negative mg/dL (NEG) Urine Ketones (Stick) Negative mg/dL (NEG) Urine Blood Large (NEG) Urine Nitrite Negative (NEG) Urine Bilirubin Negative (NEG) Urine Urobilinogen Dipstick 1.0 mg/dL (0.2 mg/dL) Urine Leukocyte Esterase Large (NEG) Urine RBC Tntc /HPF (0-2) Urine WBC >40 /HPF (0-4) Urine Squamous Epithelial Cells Occ /LPF Urine Bacteria Few /HPF (0-FEW) Vital Signs: Vital Signs Date Time Temp Pulse Resp B/P (MAP) Pulse Ox O2 Delivery O2 Flow Rate FiO2 04/04/21 14:29 98.4 78 16 129/60 (83) 98 Room Air 98.4 (LILIANE RAMIREZ APRN) EKG: EKG: [] (LILIANE RAMIREZ APRN) Radiology/Procedures: Radiology/Procedures: [] (LILIANE RAMIREZ APRN) Course & Med Decision Making: Course & Med Decision Making Pertinent Labs and Imaging studies reviewed. (See chart for details) See HPI. Alert and oriented x4. Ambulatory steady gait. Speaks in full clear sentences. No CVA tenderness. Abdomen soft and nontender. Skin pink warm and dry. Vital signs within normal limits. Afebrile. Urinalysis shows infection. She is given a dose of Rocephin IM. [] (LILIANE RAMIREZ APRN) Course & Med Decision Making I have participated in the care of this patient and I have reviewed and agree with all pertinent clinical information above including history, exam, and recommendations. (WARNER STEELE DO) Dragon Disclaimer: Dragon Disclaimer: This electronic medical record was generated, in whole or in part, using a voice recognition dictation system. (LILIANE RAMIREZ APRN) Departure Departure Impression: Primary Impression: UTI (urinary tract infection) Qualified Codes: N39.0 - Urinary tract infection, site not specified; R31.9 - Hematuria, unspecified Disposition: 01 HOME / SELF CARE / HOMELESS Condition: STABLE Referrals: NO PCP (PCP) Patient Instructions: Urinary Tract Infection Additional Instructions: Follow-up with your primary care doctor or urology of your choosing. Take your medication as prescribed and with food. If anything worsens, begin running a high fever and have severe pain or you cannot keep down fluids from vomiting return to the emergency room. Scripts Fluconazole (DIFLUCAN) 150 Mg Tablet 1 TAB PO ONCE, #1 TAB Prov: LILIANE RAMIREZ APRN 04/04/21 Cephalexin (KEFLEX) 500 Mg Capsule 1 CAP PO TID, #30 CAP Prov: LILIANE RAMIREZ APRN 04/04/21 LILIANE RAMIERZ APRN Apr 04, 2021 14:58 WARNER STEELE DO Apr 04, 2021 15:15
[2021-04-04] MEDS ORDERED: cefTRIAXone IM 1 GM VIAL IM ONE (15:00)
[2021-04-04] MEDS ORDERED: FLUC150T PO (15:08)
== END 2021-04-04 15:51 | disposition home or self-care (01) ==
LOC: ER 13:55
DX: N39.0 Urinary tract infection, site not specified (principal); R31.9 Hematuria, unspecified; Z91.041 Radiographic dye allergy status
CPT/HCPCS: 81001; 87077; 87086; 87147; 96372; 99283; J0696

== ENCOUNTER 2021-04-07 10:24 | Emergency (ER) | payer MEDICAID ==
[~2021-04-07] VITALS: Ht 162.6 cm; Wt 72.0 kg
[~2021-04-07 10:24] MED LIST changes: +CEPH500C PO
[2021-04-07 10:40] VITALS: BP 122/71
--- NOTE | 2021-04-07 10:48 | PHYS DOC ---
Past Medical History Past Medical History: Depression Additional Past Medical Histor: chronic back and hip pain ([employer] [place] [employer]) Past Surgical History: , Tubal ligation, Other Additional Past Surgical Histo: R)ovarian cyst removal, HERNIA REPAIR ([employer] [place] [employer]) Smoking Status: Never Smoker Alcohol Use: Occasionally Drug Use: None ([employer] ME[employer] [place] [employer]) General Adult EDM: Chief Complaint: DIARRHEA HPI: HPI: Patient is a 30 year old female who presents to the ED today complaining of diarrhea. Patient states she was started on cephalexin for UTI on Sunday, she took 1 dose in the evening then the next morning she woke up with diarrhea body aches and chills. She states she believes she is allergic to cephalexin. She states she called her job and they told that she has Covid. She states she does not believe she has Covid, she is unvaccinated against Covid and does not want the vaccine. She states this antibiotics is the source of her diarrhea body aches and chills. Patient is very argumentative and against Covid vaccine and Covid results ([employer] [place] [employer]) Review of Systems: Review of Systems: Constitutional: Reports body aches and chills. Denies fever Eyes: Denies change in visual acuity. [] HENT: Denies nasal congestion or sore throat. [] Respiratory: Denies cough or shortness of breath. [] Cardiovascular: Denies chest pain or edema. [] GI: Reports diarrhea. Denies abdominal pain, nausea, vomiting, bloody stools : Denies dysuria. [] Musculoskeletal: Denies back pain or joint pain. [] Integument: Denies rash. [] Neurologic: Denies headache, focal weakness or sensory changes. [] Psychiatric: Denies depression or anxiety. [] ([employer] [place] [employer]) Heart Score: C/O Chest Pain: N/A Risk Factors: Risk Factors: DM, Current or recent (<one month) smoker, HTN, HLP, family history of CAD, obesity. Risk Scores: Score 0 - 3: 2.5% MACE over next 6 weeks - Discharge Home Score 4 - 6: 20.3% MACE over next 6 weeks - Admit for Clinical Observation Score 7 - 10: 72.7% MACE over next 6 weeks - Early Invasive Strategies ([employer] [place] [employer]) Allergies: Allergies: Allergies Coded Allergies Type Severity Reaction Last Updated Verified Iodinated Contrast Media Allergy Intermediate burn & itch 04/07/21 Yes (PARMINDER MENA APRN) Physical Exam: PE: Constitutional: Well developed, well nourished, no acute distress, non-toxic appearance. [] HENT: Normocephalic, atraumatic, bilateral external ears normal, oropharynx moist, no oral exudates, nose normal. [] Eyes: PERRLA, EOMI, conjunctiva normal, no discharge. [] Neck: Normal range of motion, no tenderness, supple, no stridor. [] Cardiovascular:Heart rate regular rhythm, no murmur [] Lungs & Thorax: Bilateral breath sounds clear to auscultation [] Abdomen: Bowel sounds normal, soft, no tenderness, no masses, no pulsatile masses. [] Skin: Warm, dry, no erythema, no rash. [] Back: No tenderness, no CVA tenderness. [] Extremities: No tenderness, no cyanosis, no clubbing, ROM intact, no edema. [] Neurologic: Alert and oriented X 3, normal motor function, normal sensory function, no focal deficits noted. [] Psychologic: Affect normal, judgement normal, mood normal. [] ([employer] [place] [employer]) EKG: EKG: [] (PARMINDER MENA APRN) Radiology/Procedures: Radiology/Procedures: [] (PARMINDER MENA APRN) Course & Med Decision Making: Course & Med Decision Making Pertinent Labs and Imaging studies reviewed. (See chart for details) This is a 30-year-old female patient presented to the ED today complaining of diarrhea body aches and chills symptoms began on Sunday. Patient states she was diagnosed with UTI on Sunday and started on cephalexin, she took 1 pill Sunday evening then woke up Sunday morning with diarrhea body aches and chills. She believes she is allergic to cephalexin. Patient is very argumentative especially when the RN and I informed her this diarrhea is not likely from 1 dose of antibiotics, it could be COVID-19. She spent a lot of time complaining about COVID-19 vaccine and how she does not want to get it neither does she want to hear about COVID-19 disease effects. Informed patient after long discussion she can stop taking the cephalexin and see if her symptoms subside switching her to another antibiotic was another long conversation with patient arguing. Her urine culture was positive for strep B only, she is not . Rapid Covid test. PCR Covid test pending. Discharge home. Follow-up with her own PCP. (PARMINDER MENA APRN) [place] Disclaimer: Dragon Disclaimer: This electronic medical record was generated, in whole or in part, using a voice recognition dictation system. (PARMINDER MENA APRN) Departure Departure Impression: Primary Impression: Diarrhea Qualified Codes: R19.7 - Diarrhea, unspecified Additional Impression: Person under investigation for COVID-19 Disposition: HOME / SELF CARE / HOMELESS Condition: STABLE Referrals: NO PCP (PCP) follow up with your doctor in one week Patient Instructions: Diarrhea, [id number] Additional Instructions: Your rapid covid test is negative your PCR Covid test is pending. Quarantine yourself until you get results from us. Maintain good and hygiene, follow-up with your doctor as needed. Attending Signature I have participated in the care of this patient and I have reviewed and agree with all pertinent clinical information above including history, exam, and recommendations. (CAROLYN KENNEDY DO) PARMINDER MENA APRN Apr 07, 2021 10:48 CAROLYN KENNEDY DO Apr 07, 2021 14:14
--- NOTE | 2021-04-08 09:40 | NUR ---
IP: Attempted to contact pt concerning covid results. No answer, left a voicemail to return the call. Addendum: 04/08/21 at 0946 by DEBORAH LANDON RN Pt returned my call. I informed her of the negative covid test. Pt verbalized understanding.
== END 2021-04-07 12:33 | disposition home or self-care (01) ==
LOC: ER 10:24
DX: R19.7 Diarrhea, unspecified (principal); Z20.822 Contact with and (suspected) exposure to COVID-19; M79.10 Myalgia, unspecified site; R68.83 Chills (without fever); Z91.041 Radiographic dye allergy status
CPT/HCPCS: 87426; 99283; U0003; U0005